=== PATIENT | female | born 1990 | race Caucasian/White ===

== ENCOUNTER → 2020-08-12 11:32 | Outpatient (CLI) | payer OTHER, MEDICAID, SELFPAY ==
[2020-08-12 14:12] LABS: Urine N gonorrhoeae NOT DETECTED
[2020-08-12 14:14] LABS: Urine Chlamydia NOT DETECTED
== END ==
PROVIDERS: Visit Provider Student in an Organized Health Care Education/Training Program
DX: N89.8 Other specified noninflammatory disorders of vagina (principal); R30.0 Dysuria
CPT/HCPCS: 87086; 87210; 87491; 87591

== ENCOUNTER → 2021-05-12 08:49 | Outpatient (CLI) | payer OTHER, MEDICAID, SELFPAY ==
[2021-05-12 09:12] LABS: COVID19 -Nasal RAPID POSITIVE (Negative)
== END ==
PROVIDERS: Referring Provider Nurse Practitioner Family; Visit Provider Nurse Practitioner Family
DX: Z20.822 Contact with and (suspected) exposure to COVID-19 (principal)
CPT/HCPCS: 87635

== ENCOUNTER 2021-08-14 17:47 | Observation (INO) | payer OTHER, MEDICAID, SELFPAY ==
[2021-08-14 17:51] VITALS: PULSE 90; RESP 24; TEMP 37.3; O2SAT 99
--- NOTE | 2021-08-14 17:53 | DI.RAD.S_ITS ---
PROCEDURE: XR RIBS RT MIN 3V W CXR 1V INDICATIONS: fall TECHNIQUE: 2 views of the right ribs were acquired, along with a single view chest. COMPARISON: None. FINDINGS: Surgical changes and devices: None. Bones and chest wall: Moderately displaced right lateral 7th and 8th rib fractures. No suspicious bony lesions. Overlying soft tissues appear unremarkable. Lungs and pleura: No pleural effusions . Small right pneumothorax. Lungs appear clear. Mediastinum: Mediastinal contours appear normal. Heart size is normal. IMPRESSION: 1. Right rib fractures. 2. Small right pneumothorax. 3. Findings discussed with Dr. Lantigua on 08/14/2021 at 18:10 hours. Dictated by: Rusty Cheek M.D. on 08/14/2021 at 18:08 Approved by: Rusty Cheek M.D. on 08/14/2021 at 18:10
[2021-08-14 17:54] VITALS: BP 142/70
--- NOTE | 2021-08-14 19:18 | ED.FALL ---
HPI - Fall General Chief Complaint: Fall Stated Complaint: fell going up step ribs hurt hard to breath Time Seen by Provider: 08/14/21 19:10 Source: patient Mode of arrival: Wheelchair History of Present Illness HPI Narrative: 31F smoker with noncontributory medical history presents with a chief complaint of right-sided chest pain after a fall last night. She states that she had had a few drinks and was walking up stairs and tripped and fell onto her right-sided ribs. She denies any head neck or back pain. She has pain with deep inspiration and feels short of breath as a consequence of this pain. She denies any cough or hemoptysis. She denies nausea, vomiting or diarrhea. She is otherwise healthy and free of complaint Related Data Home Medications Medication Instructions Recorded Confirmed albuterol sulfate 90 mcg/actuation 90 mcg INHALATION PRN PRN 08/12/20 08/14/21 aerosol inhaler valacyclovir 500 mg tablet 500 mg PO DAILY 08/14/21 08/14/21 Allergies Allergy/AdvReac Type Severity Reaction Status Date / Time naproxen Allergy Intermediate Hives Verified 05/12/21 08:48 Review of Systems Review of Systems Narrative: GENERAL: See HPI HEENT: Denies sinus pain, ear pain, sore throat, difficulty swallowing, dizziness. RESPIRATORY: See HPI CARDIOVASCULAR: Denies chest pain, palpitations, orthopnea, edema, GASTROINTESTINAL: Denies nausea, vomiting, abdominal pain, diarrhea, constipation, melena. : Denies dysuria, frequency, incontinence, hematuria, urinary retention. MUSCULOSKELETAL: denies weakness, joint pain, or bony pain SKIN: Denies rash, skin lesions, or other NEUROLOGIC: Denies weakness, headache, numbness, change in speech, confusion, seizures, incoordination. PSYCHIATRIC: No concerning psychosocial issues. 12 point review of systems is negative except for those stated above Patient History Medical History (Updated 08/14/21 @ 21:52 by KT Darnell) Closed rib fracture COVID-19 Encounter for screening for infections with predominantly sexual mode of transmission Pneumothorax on right Family History (Updated 08/14/21 @ 21:47 by KT Darnell) Mother Diabetes mellitus Father Diabetes mellitus Social History household members: none Smoking Status: Current every day smoker alcohol intake: current Smoking Status: Current every day smoker Exam Narrative Exam Narrative: GENERAL: [31] year old patient appears stated age. Well-developed patient, in mild distress. GCS 15, obviously uncomfortable, laying on her left side HEAD: Atraumatic. Normocephalic. EYES: Pupils equal round and reactive. Extraocular motions intact. No scleral icterus. No injection or drainage. ENT: Nose without bleeding, purulent drainage. Throat without erythema, tonsillar hypertrophy or exudate. Airway patent. NECK: Trachea midline. Non tender CARDIOVASCULAR: Regular rate and rhythm without murmurs, gallops, or rubs. RESPIRATORY: Decreased sounds right apex, tender to palpate lateral ribs, no crepitance or subcu emphysema, no swelling or erythema. GASTROINTESTINAL: Abdomen soft, non-tender, nondistended. EXTREMITIES: No edema or joint tenderness. BACK: Nontender without deformity or crepitance. No flank tenderness. NEURO: AOx3. SKIN: No rash or erythema of visible areas Initial Vital Signs Initial Vital Signs: Vital Signs Temperature 99.1 F 08/14/21 17:51 Pulse Rate 90 08/14/21 17:51 Respiratory Rate 24 08/14/21 17:51 Pulse Oximetry 99 08/14/21 17:51 Course Orders Ordered: ED Orders 08/14/21 17:53 XR ribs RT min 3V w CXR1V Stat 08/14/21 19:27 COVID19 -Nasal RAPID/Pre-Proc Stat 08/14/21 19:35 BMP [Basic Metabolic Panel] Stat CBC Auto Diff [Complete Blood Count AUTO DIFF] Stat Acetaminophen (Acetaminophen 325 Mg Tablet) 650 mg PO Q6H [facility] Last Admin: 08/14/21 23:33 Dose: Not Given Documented by: CMCFARL Enoxaparin Sodium (Enoxaparin 40 Mg/0.4 Ml Syringe) 40 mg SUBCUT DAILY [facility] Hydromorphone HCl (Hydromorphone 0.5 Mg Inj) 0.5 mg IV Q4H PRN PRN Reason: Breakthrough pain only (8-10) Naloxone HCl (Naloxone 0.4 Mg/Ml Vial) 0.2 mg IV Q2MIN PRN PRN Reason: Opiate Reversal Ondansetron HCl (Ondansetron 4 Mg Odt) 4 mg PO Q6HR PRN PRN Reason: Nausea And Vomiting Last Admin: 08/14/21 21:26 Dose: 4 mg Documented by: FELIX Oxycodone HCl (Oxycodone Ir 5 Mg Tablet) 5 mg PO Q4HR PRN PRN Reason: Pain, Severe (7-10) Last Admin: 08/14/21 21:26 Dose: 5 mg Documented by: DENISEFARBala Tramadol HCl (Tramadol 50 Mg Tablet) 50 mg PO Q4H PRN PRN Reason: Pain, Moderate (4-6) Stop: 08/17/21 20:22 Discontinued Medications Acetaminophen (Acetaminophen 325 Mg Tablet) 650 mg PO Q6HR PRN PRN Reason: Fever/Mild Pain (1-3) Last Admin: 08/14/21 22:11 Dose: 650 mg Documented by: DENISEFARBala Tramadol HCl (Tramadol 50 Mg Tablet) 100 mg PO Q4H PRN PRN Reason: Pain, Moderate (4-6) Stop: 08/17/21 20:22 Consultations Consultation #1: discussed with implementation specialist payroll surgery, clinical course and imaging reviewed. No need for intervention at this time, recommend OBS to medicine, pain control, O2 as needed, repeat Xray in the morning Consultation #2: hospitalist happy to accept Vital Signs Vital signs: Vital Signs - 8 hr 08/14/21 17:51 08/14/21 17:54 Temperature 99.1 F Pulse Rate 90 Respiratory Rate 24 Blood Pressure 142/70 H Pulse Oximetry 99 MDM - Fall Lab Data Result diagrams: 08/14/21 19:35 08/14/21 19:35 Labs: Lab Results 08/14/21 08/14/21 08/14/21 Range/Units 19:27 19:35 19:35 WBC 14.2 H (4.5-11.0) X10^3/uL RBC 4.49 (4.0-5.2) X10^6/uL Hgb 13.9 (12.0-16.0) g/dL Hct 41.8 (36-46) % MCV 93.1 (80-100) fL MCH 30.9 (26-34) PG MCHC 33.2 (30-36) % RDW 14.2 (11.6-14.8) % Plt Count 251 (150-400) X10^3/uL Neut % (Auto) 79.5 H (50-75) % Lymph % (Auto) 14.3 L (25-40) % [place] % (Auto) 5.9 (3-14) % Eos % (Auto) 0.2 L (2-4) % Baso % (Auto) 0.1 (0-2) % Neut # (Auto) 42571 H (7465-0652) /uL Lymph # (Auto) 2000 (6682-3952) /uL [place] # (Auto) 800 (0-900) /uL Eos # (Auto) 0 (0-450) /uL Baso # (Auto) 0 (0-100) /uL Sodium 142 (137-145) mmol/L Potassium 3.9 (3.4-5.1) mmol/L Chloride 106 (98-107) mmol/L Carbon Dioxide 30 (22-32) mmol/L BUN 11 (7-17) mg/dL Creatinine 0.66 (0.52-1.04) mg/dL Estimated GFR > 60 (>60) mL/min BUN/Creatinine Ratio 16.7 (6-22) Glucose 80 (70-100) mg/dL Calcium 9.6 (8.4-10.2) mg/dL SARS-CoV-2 (PCR) Negative (Negative) Imaging Data Chest x-ray: Radiologist's Impression: Chart Viewer Diagnostics Subcategory All Activity ??:?? All Time ??:?? All Subcategories Filter Laboratory Imaging Microbiology Pathology Blood Bank Tests Cardiovascular Other Specialty DATE TYPE STATUS REF RANGE/AUTHOR Hx Today 17:53 Ribs X-Ray Signed Rusty Cheek Amy D ED 31, F?1990 MRN#? [id number] REG ER,?Main ED??R04?? 54.431kg ? Fall Acc#? [id number] Resus Status Not Ordered No Hx Avail Special Indicators No Data to Display Home Meds Not Confirmed Prescription Monitoring Program MEDICATIONS (INSTRUCTIONS) LAST TAKEN Active ??albuterol sulfate 90 mcg/actuation aerosol inhaler ??INHALATION Allergies naproxen Hives Problems ? ONSET COVID-19 Shortness of breath Encounter for screening for infections with predominantly sexual mode of transmission Vital Signs Today 17:54 BP 142/70?H Diagnostics Reports Danna Don??31??F??1990 ? Allergy/Adv: naproxen Close Ribs X-Ray (Signed) Rusty Cheek - 08/14/21 [place] [address] XRay Report Signed Patient: Danna Don MR#: [id number] : 1990 Acct:[id number] Age/Sex: 31 / F Date of Service: 08/14/21 Loc: ED Accession Number: [id number] ?? Procedure: XR ribs RT min 3V w CXR1V Ordering Provider: Jak Lantigua D.O. PROCEDURE:? XR RIBS RT MIN 3V W CXR 1V ? INDICATIONS:? fall ? TECHNIQUE:? 2 views of the right ribs were acquired, along with a single view chest.? ? COMPARISON:? None. ? FINDINGS:? ? Surgical changes and devices:? None.? ? Bones and chest wall:? Moderately displaced right lateral 7th and 8th rib fractures.? No suspicious bony lesions.? Overlying soft tissues appear unremarkable.? ? Lungs and pleura:? No pleural effusions .? Small right pneumothorax.? Lungs appear clear. ? ? Mediastinum:? Mediastinal contours appear normal.? Heart size is normal.? ? IMPRESSION:? 1. Right rib fractures. 2. Small right pneumothorax. 3. Findings discussed with Dr. Lantigua on 08/14/2021 at 18:10 hours. ? ? Dictated by: Rusty Cheek M.D. on 08/14/2021 at 18:08 ? ? Approved by: Rusty Cheek M.D. on 08/14/2021 at 18:10 ? Discharge Plan Departure Patient Disposition: Admitted as Observation Clinical Impression: Pneumothorax on right, Closed rib fracture Admit Date/Time: 08/14/21 20:09 Admit Provider: Samantha Triana
[2021-08-14 19:51] LABS: Add Manual Diff / Slide Review NO; Basophils Absolute Auto 0 /uL (0-100); Basophils Percent Auto 0.1 % (0-2); Eosinophils Absolute Auto 0 /uL (0-450); Eosinophils Percent Auto 0.2 % (2-4); Hematocrit 41.8 % (36-46); Hemoglobin 13.9 g/dL (12.0-16.0); Lymphocytes Absolute Auto 2000 /uL (1100-4500); Lymphocytes Percent Auto 14.3 % (25-40); Mean Corpuscular HGB Conc 33.2 % (30-36); Mean Corpuscular Hemoglobin 30.9 PG (26-34); Mean Corpuscular Volume 93.1 fL (80-100); Monocytes Absolute Auto 800 /uL (0-900); Monocytes Percent Auto 5.9 % (3-14); Neutrophils Absolute Auto 11300 /uL (1500-7000); Neutrophils Percent Auto 79.5 % (50-75); Platelet Count 251 X10^3/uL (150-400); Red Blood Cell Count 4.49 X10^6/uL (4.0-5.2); Red Cell Distribution Width 14.2 % (11.6-14.8); White Blood Cell Count 14.2 X10^3/uL (4.5-11.0)
[2021-08-14 20:03] LABS: COVID19 -Nasal RAPID Negative (Negative)
[2021-08-14 20:04] LABS: BUN Creatinine Ratio 16.7 (6-22); Blood Urea Nitrogen 11 mg/dL (7-17); Calcium 9.6 mg/dL (8.4-10.2); Carbon Dioxide 30 mmol/L (22-32); Chloride 106 mmol/L (98-107); Estimated Glomerular Filt Rate > 60 mL/min (>60); Glucose 80 mg/dL (70-100); HEMOLYSIS < 15 (0-50); Potassium 3.9 mmol/L (3.4-5.1); Sodium 142 mmol/L (137-145)
[2021-08-14 21:10] VITALS: BP 131/75; PULSE 61; RESP 16; TEMP 36.6; O2SAT 98
[2021-08-14] MEDS: ONDANSETRON 4 MG ODT PO (21:26)
[2021-08-14] MEDS: OXYCODONE IR 5 MG TABLET PO (21:26)
[2021-08-14 21:37] VITALS: BMI 22.6
--- NOTE | 2021-08-14 21:45 | P.HP_ITS ---
History of Present Illness History of Present Illness Date Patient Seen: 08/14/21 Time Patient Seen: 21:45 Chief complaint: Fall yesterday, 2 rib fx, small r. pneumothorax Narrative: Danna Don is a 31 y.o. female with no current or chronic medical issues took a fall yesterday after binge drinking up her stairs. She states she got dizzy and tripped, but denied hitting her head. She developed right sided rib pain and presented to the ED. She has had nausea with the pain. Is painful with breathing and has not eaten or drank anything all day, states she is thirsty. Denies cough or shortness of breath, abdominal pain or diarrhea. Patient History Medical History (Updated 08/14/21 @ 21:52 by KT Darnell) Closed rib fracture COVID-19 Encounter for screening for infections with predominantly sexual mode of transmission Pneumothorax on right Family & Social History Family History (Updated 08/14/21 @ 21:47 by KT Darnell) Mother Diabetes mellitus Father Diabetes mellitus Tobacco & Substance use: Smoking Status: Current every day smoker, vapes Alcohol: Intermittent Substance: Marijuana Meds Home Medications and Allergies Home Medications Medication Instructions Recorded Confirmed Type albuterol sulfate 90 mcg/actuation 90 mcg INHALATION PRN PRN 08/12/20 08/14/21 History aerosol inhaler valacyclovir 500 mg tablet 500 mg PO DAILY 08/14/21 08/14/21 History Allergies Allergy/AdvReac Type Severity Reaction Status Date / Time naproxen Allergy Intermediate Hives Verified 05/12/21 08:48 Review of Systems Review of Systems ROS: Yes All systems reviewed with the patient and are negative except as otherwise documented Exam Vital Signs (past 8 hours): - 08/14/21 17:51 08/14/21 17:54 Temperature 99.1 F Pulse Rate 90 Respiratory Rate 24 Blood Pressure 142/70 H Pulse Oximetry 99 Oxygen Delivery Method Room Air Narrative Exam Narrative: Gen: Alert, oriented, well-developed 31 y.o. female, expressing a great deal of pain HEENT: normocephalic, atraumatic, conjunctiva clear, sclera non-icteric, oral mucosa pink and moist Neck: supple, full ROM, no JVD, trachea is midline Resp: Lungs CTA, shallow breathing CV: RRR, no murmur or rubs Abd: soft, non-tender, normoactive BTs Skin: no lesions or rashes, dry and intact Neuro: Alert and oriented X 4 w/no focal deficits. Speech clear and coherent. Extremities: moves all 4 extremities, is ambulatory, negative Chevy?s sign Psyche: normal mood and affect. Objective Labs Result Diagrams: 08/14/21 19:35 08/14/21 19:35 Labs: Laboratory Results - last 24 hr 08/14/21 08/14/21 08/14/21 19:27 19:35 19:35 WBC 14.2 H RBC 4.49 Hgb 13.9 Hct 41.8 MCV 93.1 MCH 30.9 MCHC 33.2 RDW 14.2 Plt Count 251 Neut % (Auto) 79.5 H Lymph % (Auto) 14.3 L [place] % (Auto) 5.9 Eos % (Auto) 0.2 L Baso % (Auto) 0.1 Neut # (Auto) 80416 H Lymph # (Auto) 2000 [place] # (Auto) 800 Eos # (Auto) 0 Baso # (Auto) 0 Sodium 142 Potassium 3.9 Chloride 106 Carbon Dioxide 30 BUN 11 Creatinine 0.66 Estimated GFR > 60 BUN/Creatinine Ratio 16.7 Glucose 80 Calcium 9.6 SARS-CoV-2 (PCR) Negative Assessment & Plan Assessment & Plan narrative: Danna Don will be observed overnight on the medical-surgical unit for both pain control and to monitor progression of her right sided pneumothrorax. 1. Fall with resultant small right sided pneumothorax * Continous O2 monitoring * Repeat chest xray in the am to monitor if has enlarged * I was informed Surgery was consulted and that the pneumothorax should resolve with oxygen, but to monitor overnight. 2. Displaced 7th and 8th rib fractures * Pain control with Tylenol, tramadol, oxycodone and IV dilaudid for breathrough pain 3. Tobacco dependence * Patient vapes tobacco and has been trying to reduce * She declines tobacco patch VTE Prophylaxis: Wells risk score 0 Enoxaparin 40 mg subQ once daily Bilateral SCDs Patient is placed into observation as her stay is not expected to exceed 2 midnights. FEN: IV fluids: saline lock, diet: general, labs: CBC, BMP Consultants Dr. Alanis, General Surgery, care and involvement in the patient?s care is appreciated. Dispo: Discharge to home in am anticipated Code status: Full Code as discussed with the patient who identifies her friend, Jojo (? needs to be entered into her chart) as her surrogate and POA. [X] I have utilized all available immediate resources to obtain, update, or review of the patient's current medications COVID-19 COVID-19 status: Negative Result date/Date tested (Pos, Neg/Pending): 08/14/21 Time Spent With Patient Critical Care time: I spent a total of [] minutes of critical care time on this patient's care today; this time is exclusive of procedural time. Scores Wells' Criteria for PE Clinical signs and symptoms of DVT: No PE is #1 Dx or equally likely: No Heart rate > 100: No Immobilization at least 3 days or surg in previous 4 weeks: No History of PE or DVT: No Hemoptysis: No Malignancy w/Treatment within 6 months or palliative: No Wells' PE Score total: 0 Quality VTE Deep Vein Thrombosis/Pulmonary Embolism Present on Admission: No MIPS - Admit I confirm the patient?s Advance Care Plan is present, Code status is documented, Surrogate decision maker is in patient?s record [If Yes, STOP here]: Yes MIPS - DC The patient has current or prior documentation of left ventricular ejection fraction (LVEF) less than 40%, or moderate or severely depressed left ventricular systolic function.: No
[2021-08-14] MEDS: ACETAMINOPHEN 325 MG TABLET 650 MG PO (22:11)
--- NOTE | 2021-08-14 22:42 | PC.NURSE ---
Pt to room 213 via w/c -able to transfer self to bathroom and then bed. Arranged pillows around Pt to increase comfort, warm blankets also applied. Pain meds given as well as water and juice to drink. Pt oriented to room, call light, bed controls, and tv controls. Bed alarm on for safety. Pt declines scd's and states she will perform ankle waves. Pt agrees to call for assistance as needed.
[2021-08-15] VITALS (8 sets, daily range): BP systolic 99–111; BP diastolic 51–68; PULSE 45–70; RESP 16–21; TEMP 35.9–36.5; O2SAT 94–99
[2021-08-15 05:23] LABS: Hematocrit 38.2 % (36-46)
[2021-08-15 05:34] LABS: Alanine Aminotransferase 21 IU/L (<35); Albumin 3.7 g/dL (3.5-5.0); Albumin Globulin Ratio 1.5 (1.0-2.8); Alkaline Phosphatase 46 U/L (38-126); Aspartate Aminotransferase 33 IU/L (14-36); BUN Creatinine Ratio 21.2 (6-22); Bilirubin Total 1.2 mg/dL (0.2-1.3); Blood Urea Nitrogen 14 mg/dL (7-17); Calcium 9.2 mg/dL (8.4-10.2); Carbon Dioxide 29 mmol/L (22-32); Chloride 104 mmol/L (98-107); Estimated Glomerular Filt Rate > 60 mL/min (>60); Globulin 2.4 g/dL (1.7-4.1); Glucose 92 mg/dL (70-100); HEMOLYSIS < 15 (0-50); Potassium 3.8 mmol/L (3.4-5.1); Sodium 136 mmol/L (137-145); Total Protein 6.1 g/dL (6.3-8.2)
[2021-08-15] MEDS: OXYCODONE IR 5 MG TABLET PO ×3 (07:45→23:49)
--- NOTE | 2021-08-15 08:10 | CM.DANOTE ---
DCP: Case received, EMR reviewed and met with patient. Introduced self and role. Was able to obtain some history from patient. DCP assessment completed with information currently available. Patient is a 31 year old female who admitted yesterday evening to the care of the hospitalist team. PCP: Dr. Maria A Morrow. Payer: [employer]. Patient came to the hospital via private vehicle secondary to a ground level fall that occurred at home. Patient was complaining of right-sided chest pain after sustaining a fall on the stairs. Patient had been binge drinking, was dizzy, and tripped on the steps. Patient ended up with right lateral 7th and 8th rib fractures. Met with patient in her room. She was laying in bed, alert and oriented. Confirmed that she resides alone here in [place]. Asked her about her drinking, if she thought she had drinking problems. She stated, no, I was just drunk, I don't drink all of the time. Asked her if she had a primary care provider, which she stated Maria A Morrow in [place]. Asked her also if she has someone to pick her up upon discharge, and she stated she does. P: DCP to continue to follow for any needs. Patient may be getting another x-ray this am. Plan is home when she is deemed medically stable. Guera Tinoco RN/Access Service Representative Discharge Planning/Care Management CM Discharge Assessment Start: 08/15/21 08:09 Freq: Status: Active Protocol: Document 08/15/21 08:09 (Rec: 08/15/21 08:09 [id number]) Discharge Planning Assessment Assigned [employer] Manager Guera Tinoco RN/Access Service Representative Advance Directives? No History Provided By Patient,Medical Record Prior Living Arrangements Apartment/Condo Household Members none Type of transporation used prior to Drives own vehicle admit Independent with ADL's Yes Is patient alert and oriented? Yes Caregiver for Another No Barriers to Discharge No Discharge Plan Home Transportation Arrangement Friend Referrals Initiated None needed Whiteboard Updated in Patient Room with Yes name and ext. # of [employer] Manager Review Status In Process Next Review Type Continued Stay Review
--- NOTE | 2021-08-15 09:00 | DI.RAD.S_ITS ---
PROCEDURE: XR CHEST 2V INDICATIONS: small right pneumothorax, 2 rib fractures, recheck pneumo TECHNIQUE: 2 views of the chest were acquired. COMPARISON: [facility], CR, XR RIBS RT MIN 3V W CXR 1V, 08/14/2021, 17:41. FINDINGS: Surgical changes and devices: None. Lungs and pleura: Patient's known right-sided pneumothorax appears to be unchanged in size compared to earlier study and measures 3.4 cm in craniocaudal dimension. Mediastinum: Mediastinal contours are normal. Heart size is normal. Bones and chest wall: Right-sided rib fractures are again seen also unchanged from prior study.. Soft tissues appear unremarkable. IMPRESSION: 2 right posterior lateral mid rib fractures with stable appearing small right-sided pneumothorax. Dictated by: Eduardo Orellana M.D. on 08/15/2021 at 9:39 Approved by: Eduardo Orellana M.D. on 08/15/2021 at 9:40
[2021-08-15] MEDS: ACETAMINOPHEN 325 MG TABLET 650 MG PO ×3 (09:45→23:50)
[2021-08-15] MEDS: TRAMADOL 50 MG TABLET PO (09:45)
--- NOTE | 2021-08-15 10:28 | P.CONS_ITS ---
History of Present Illness Consult details Date Patient Seen: 08/15/21 Time Patient Seen: 10:28 Chief complaint: Fall yesterday, 2 rib fx, small r. pneumothorax Narrative: 31 y.o woman admitted with a Right pneumothorax and rib fractures sp fall yesterday. No acute overnight events. Chest pain with deep inspiration. O2 sats 98% RA Small PNX on initial CXR unchanged after 12 hrs. Meds Home Medications and Allergies Home Medications Medication Instructions Recorded Confirmed Type albuterol sulfate 90 mcg/actuation 90 mcg INHALATION PRN PRN 08/12/20 08/14/21 History aerosol inhaler valacyclovir 500 mg tablet 500 mg PO DAILY 08/14/21 08/14/21 History Allergies Allergy/AdvReac Type Severity Reaction Status Date / Time naproxen Allergy Intermediate Hives Verified 05/12/21 08:48 Exam Vital Signs (past 8 hours): - 08/15/21 07:00 08/15/21 09:10 Temperature 97.5 F L Pulse Rate 45 L Respiratory Rate 18 Blood Pressure 111/51 L Pulse Oximetry 98 94 Oxygen Delivery Method Room Air Oxygen Flow Rate 0 Narrative Exam Narrative: Gen-Adult woman alert and oriented Chest-non labored resp Ext-WWP Objective Labs Result Diagrams: 08/15/21 04:57 08/15/21 04:57 Labs: Laboratory Results - last 24 hr 08/14/21 08/14/21 08/14/21 19:27 19:35 19:35 WBC 14.2 H RBC 4.49 Hgb 13.9 Hct 41.8 MCV 93.1 MCH 30.9 MCHC 33.2 RDW 14.2 Plt Count 251 Neut % (Auto) 79.5 H Lymph % (Auto) 14.3 L [place] % (Auto) 5.9 Eos % (Auto) 0.2 L Baso % (Auto) 0.1 Neut # (Auto) 63607 H Lymph # (Auto) 2000 [place] # (Auto) 800 Eos # (Auto) 0 Baso # (Auto) 0 Sodium 142 Potassium 3.9 Chloride 106 Carbon Dioxide 30 BUN 11 Creatinine 0.66 Estimated GFR > 60 BUN/Creatinine Ratio 16.7 Glucose 80 Calcium 9.6 Total Bilirubin AST ALT Alkaline Phosphatase Total Protein Albumin Globulin Albumin/Globulin Ratio SARS-CoV-2 (PCR) Negative 08/15/21 08/15/21 04:57 04:57 WBC RBC Hgb 13.0 Hct 38.2 MCV MCH MCHC RDW Plt Count Neut % (Auto) Lymph % (Auto) [place] % (Auto) Eos % (Auto) Baso % (Auto) Neut # (Auto) Lymph # (Auto) [place] # (Auto) Eos # (Auto) Baso # (Auto) Sodium 136 L Potassium 3.8 Chloride 104 Carbon Dioxide 29 BUN 14 Creatinine 0.66 Estimated GFR > 60 BUN/Creatinine Ratio 21.2 Glucose 92 Calcium 9.2 Total Bilirubin 1.2 AST 33 ALT 21 Alkaline Phosphatase 46 Total Protein 6.1 L Albumin 3.7 Globulin 2.4 Albumin/Globulin Ratio 1.5 SARS-CoV-2 (PCR) [facility] Medical History Closed rib fracture COVID-19 Encounter for screening for infections with predominantly sexual mode of transmission Pneumothorax on right Family History Mother Diabetes mellitus Father Diabetes mellitus Social History household members: none Tobacco & Substance Use Smoking Status: Current every day smoker alcohol intake: current Assessment & Plan Assessment and plan (1) Pneumothorax on right: Status: Acute Assessment & Plan narrative: 31 y.o woman with a right pneumothorax and rib fxs. Repeat CXR after 12 hr reviewed small pneumothorax unchanged over interval without intervention. May discharge with return precautions for worsening shortness of breath. Multimodal pain control for rib fractures Time Spent With Patient Critical Care time: I spent a total of [] minutes of critical care time on this patient's care today; this time is exclusive of procedural time.
[2021-08-15] MEDS: CYCLOBENZAPRINE 10 MG TABLET 5 MG PO ×2 (12:57→20:41)
[2021-08-15] MEDS: LIDOCAINE PATCH 1 EACH ADH..PATCH TOP (12:57)
--- NOTE | 2021-08-15 16:08 | PM.PN.1 ---
Subjective Subjective Date Patient Seen: 08/15/21 Time Patient Seen: 08:00 Interval history: She denies shortness of breath. She has pain with breathing. She says she is in too much pain to sit up. Exam Vital Signs (past 8 hours): - 08/15/21 09:10 08/15/21 11:00 08/15/21 15:00 Temperature 97.7 F 97.4 F L Pulse Rate 47 L 56 L Respiratory Rate 18 19 Blood Pressure 99/61 110/63 Pulse Oximetry 94 98 99 Oxygen Delivery Method Room Air Oxygen Flow Rate 0 Narrative Exam Narrative: Gen-no acute distress PULM-clear bilaterally Objective Labs Result Diagrams: 08/15/21 04:57 08/15/21 04:57 Labs: Laboratory Results - last 24 hr 08/14/21 08/14/21 08/14/21 19:27 19:35 19:35 WBC 14.2 H RBC 4.49 Hgb 13.9 Hct 41.8 MCV 93.1 MCH 30.9 MCHC 33.2 RDW 14.2 Plt Count 251 Neut % (Auto) 79.5 H Lymph % (Auto) 14.3 L Bullock % (Auto) 5.9 Eos % (Auto) 0.2 L Baso % (Auto) 0.1 Neut # (Auto) 18119 H Lymph # (Auto) 2000 Bullock # (Auto) 800 Eos # (Auto) 0 Baso # (Auto) 0 Sodium 142 Potassium 3.9 Chloride 106 Carbon Dioxide 30 BUN 11 Creatinine 0.66 Estimated GFR > 60 BUN/Creatinine Ratio 16.7 Glucose 80 Calcium 9.6 Total Bilirubin AST ALT Alkaline Phosphatase Total Protein Albumin Globulin Albumin/Globulin Ratio SARS-CoV-2 (PCR) Negative 08/15/21 08/15/21 04:57 04:57 WBC RBC Hgb 13.0 Hct 38.2 MCV MCH MCHC RDW Plt Count Neut % (Auto) Lymph % (Auto) Bullock % (Auto) Eos % (Auto) Baso % (Auto) Neut # (Auto) Lymph # (Auto) Bullock # (Auto) Eos # (Auto) Baso # (Auto) Sodium 136 L Potassium 3.8 Chloride 104 Carbon Dioxide 29 BUN 14 Creatinine 0.66 Estimated GFR > 60 BUN/Creatinine Ratio 21.2 Glucose 92 Calcium 9.2 Total Bilirubin 1.2 AST 33 ALT 21 Alkaline Phosphatase 46 Total Protein 6.1 L Albumin 3.7 Globulin 2.4 Albumin/Globulin Ratio 1.5 SARS-CoV-2 (PCR) [facility] Medical History Closed rib fracture COVID-19 Encounter for screening for infections with predominantly sexual mode of transmission Pneumothorax on right Family History Mother Diabetes mellitus Father Diabetes mellitus Social History household members: none Smoking Status: Current every day smoker alcohol intake: current Assessment & Plan Assessment & Plan narrative: 1. Fall with resultant small right sided pneumothorax -repeat xray showed no change -appreciate surgery eval 2. Displaced 7th and 8th rib fractures -Pain control with Tylenol, tramadol, oxycodone and IV dilaudid for breathrough pain -add lidocaine patch, flexeril 3. Tobacco dependence -Patient vapes tobacco and has been trying to reduce - declines tobacco patch 4. Alcohol use -she denies consistent drinking, but fell due to intoxication -suspect unlikely to withdraw, but monitor ciwa for now Time Spent With Patient Critical Care time: I spent a total of [] minutes of critical care time on this patient's care today; this time is exclusive of procedural time. Quality VTE Deep Vein Thrombosis/Pulmonary Embolism Present on Admission: No
[2021-08-15] MEDS: ONDANSETRON 4 MG ODT PO (23:49)
[2021-08-16] VITALS (9 sets, daily range): BP systolic 95–110; BP diastolic 53–71; PULSE 54–69; RESP 14–20; TEMP 36.1–36.8; O2SAT 95–98
[2021-08-16] MEDS: TRAMADOL 50 MG TABLET PO (03:02)
[2021-08-16] MEDS: CYCLOBENZAPRINE 10 MG TABLET 5 MG PO ×2 (03:03→19:36)
[2021-08-16] MEDS: THIAMINE 100 MG TABLET PO (08:19)
[2021-08-16] MEDS: MULTIVITAMIN 1 TABLET 1 TAB PO (08:19)
[2021-08-16] MEDS: ENOXAPARIN 40 MG/0.4 ML SYRINGE SUBCUT (08:20)
[2021-08-16] MEDS: FOLIC ACID 1 MG TABLET PO (08:20)
[2021-08-16] MEDS: OXYCODONE IR 5 MG TABLET PO (08:20)
[2021-08-16] MEDS: LIDOCAINE PATCH 1 EACH ADH..PATCH TOP (08:21)
[2021-08-16] MEDS: OXYCODONE IR 10 MG TABLET PO ×3 (11:44→22:10)
[2021-08-16] MEDS: ACETAMINOPHEN 325 MG TABLET 650 MG PO ×3 (11:47→22:11)
--- NOTE | 2021-08-16 12:17 | PC.NURSE ---
Pt is A&O x3 with right sided rib fracture, has been complaining of severe pain (11/23). Gave 5 mg oxy at 0820, Dr. Mckenzie increased order to 10 mg. 10 mg oxy administered around 1200. There is some swelling to the right side, lidocaine patch is applied. Pt is resting in bed now.
--- NOTE | 2021-08-16 16:03 | P.PN_ITS ---
Subjective Subjective Date Patient Seen: 08/16/21 Time Patient Seen: 16:04 Interval history: Pain is still not controlled, oral medication works but she feels as if it is not strong enough and she still has a difficult time moving and taking a deep breath in. She is able to sit up today but she did appear to be in quite a bit of pain afterwards. Exam Vital Signs (past 8 hours): - 08/16/21 09:42 08/16/21 11:00 08/16/21 15:00 Temperature 98.2 F 97.3 F L Pulse Rate 61 56 L 56 L Respiratory Rate 18 17 18 Blood Pressure 97/63 103/61 Pulse Oximetry 96 96 97 Oxygen Delivery Method Room Air Oxygen Flow Rate 0 Narrative Exam Narrative: General:? Patient is well developed and well nourished, in no distress at this time. Chest:? Normal AP diameter and contour without kyphoscoliosis, no tachypnea, equal chest rise bilaterally. Lungs:? CTA b/l no wheezing rhonchi or rales. Cardio:?RRR no m/r/g. Psych:? Patient has a well-kept appearance, appropriate affect, mental status attitude thought context and judgment are appropriate for age. Objective Labs Result Diagrams: 08/15/21 04:57 08/15/21 04:57 [facility] Medical History Closed rib fracture COVID-19 Encounter for screening for infections with predominantly sexual mode of transmission Pneumothorax on right Family History Mother Diabetes mellitus Father Diabetes mellitus Social History household members: none Smoking Status: Current every day smoker alcohol intake: current Assessment & Plan Assessment & Plan narrative: 1. Fall with resultant small right sided pneumothorax -repeat xray showed no change -appreciate surgery eval -no chest tube necessary. 2. Displaced 7th and 8th rib fractures -Pain control with Tylenol, tramadol, oxycodone and IV dilaudid for breathrough pain. Increased oral oxycodone today to see if there is any improvement in pain control in the hope of having her be able to go home. -added lidocaine patch, flexeril yesterday 3. Tobacco dependence -Patient vapes tobacco and has been trying to reduce - declines tobacco patch 4. Alcohol use -she denies consistent drinking, but fell due to intoxication -suspect unlikely to withdraw, but monitor ciwa until time of discharge Dispo: continue to work on pain control, anticipate discharge home tomorrow based on progress today. Time Spent With Patient Critical Care time: I spent a total of [] minutes of critical care time on this patient's care today; this time is exclusive of procedural time. Quality VTE Deep Vein Thrombosis/Pulmonary Embolism Present on Admission: No
--- NOTE | 2021-08-16 17:56 | PC.NURSE ---
Patients oxycodone was increased to 10mg po and this has helped her with r.rib discomfort. She is up to the bathroom with sba, or independent and moving well. Lidocaine patch placed to r.abdomen and she states this is also helpful to her. To give more pain medication at this time. Patient tolerating her meals and no nausea.
[2021-08-16] MEDS: SODIUM CHLORIDE 0.9% FLUSH 10 ML IV (22:11)
[2021-08-17] MEDS: OXYCODONE IR 10 MG TABLET PO ×2 (02:43→08:47)
[2021-08-17 02:47] VITALS: O2SAT 97
[2021-08-17] MEDS: MULTIVITAMIN 1 TABLET 1 TAB PO (08:47)
[2021-08-17] MEDS: THIAMINE 100 MG TABLET PO (08:47)
[2021-08-17] MEDS: SODIUM CHLORIDE 0.9% FLUSH 10 ML IV (08:48)
[2021-08-17] MEDS: LIDOCAINE PATCH 1 EACH ADH..PATCH TOP (08:48)
[2021-08-17] MEDS: ACETAMINOPHEN 325 MG TABLET 650 MG PO (08:48)
[2021-08-17] MEDS: FOLIC ACID 1 MG TABLET PO (08:48)
--- NOTE | 2021-08-17 09:22 | P.DS_ITS ---
History of Present Illness History of Present Illness Date Patient Seen: 08/17/21 Time Patient Seen: 09:22 Chief complaint: Fall yesterday, 2 rib fx, small r. pneumothorax Narrative: Per KT Darnell: Danna Don is a 31 y.o. female with no current or chronic medical issues took a fall yesterday after binge drinking up her stairs. She states she got dizzy and tripped, but denied hitting her head. She developed right sided rib pain and presented to the ED. She has had nausea with the pain. Is painful with breathing and has not eaten or drank anything all day, states she is thirsty. Denies cough or shortness of breath, abdominal pain or diarrhea. Discharge Providers Provider Date of admission: 08/14/21 20:09 Discharge Date: 08/17/21 Consults: 08/14/21 20:27 Consult to Physician Routine Comment: Consulting Provider: Nito Alanis Reason for consultation: right sided pneumothorax Has provider been notified: Yes 08/14/21 21:46 Consult to Respiratory Therapy Evaluate & Treat Comment: Physician Instructions: Evaluate and treat Discharge provider: Drake Mckenzie DO Summary Hospital Course Discharge Diagnosis: 1. Fall with resultant small right sided pneumothorax 2. Displaced 7th and 8th rib fractures 3. Tobacco dependence 4. Alcohol use Hospital Course: This is a 31 year old female, active smoker, who was admitted after a fall where she suffered displaced 7th and 8th rib fractures with resultant small right vaibhav ed pneumothorax. Repeat imaging showed a stable process and surgery did not recommend any interventions. She continued to have difficulty with pain control, but after a few days she was able to mobilize a bit better and take deep breath with oral pain medications only. She was advised on limiting alcohol intake and tobacco cessation. Exam Vital Signs (past 8 hours): - 08/17/21 02:47 Pulse Oximetry 97 Oxygen Delivery Method Room Air Oxygen Flow Rate 0 Narrative Exam Narrative: General:? Patient is well developed and well nourished, in no distress at this time. Chest:? Normal AP diameter and contour without kyphoscoliosis, no tachypnea, equal chest rise bilaterally. Lungs:? CTA b/l no wheezing rhonchi or rales. Cardio:?RRR no m/r/g. Psych:? Patient has a well-kept appearance, appropriate affect, mental status attitude thought context and judgment are appropriate for age. Objective Labs Result Diagrams: 08/15/21 04:57 08/15/21 04:57 PFSH Medical History Closed rib fracture COVID-19 Encounter for screening for infections with predominantly sexual mode of transmission Pneumothorax on right Family History Mother Diabetes mellitus Father Diabetes mellitus Social History household members: none Smoking Status: Current every day smoker alcohol intake: current Discharge Plan Discharge Plan Patient Disposition: Home Provider Discharge Comment: You were admitted to the hospital after a fall and r ib fractures for pain control. This improved over a couple of days. Please continue tylenol and motrin every 8 hours at home, alternating doses over the course of 1 week. This is designed to reduce opiate use at home. Please continue to use incentive spirometer at home as well. Please follow up with primary care in the next few weeks if continuing to have significant pain. Discharge orders & Medications Prescriptions: New cyclobenzaprine 10 mg Tablet 5 mg PO Q8HR PRN (Reason: spasm) 7 Days Qty: 20 0RF acetaminophen 325 mg Tablet 650 mg PO Q6H 30 Days Qty: 240 0RF oxycodone 5 mg tablet 5 - 10 mg PO Q6H PRN (Reason: pain) 7 Days Qty: 40 0RF Continued albuterol sulfate 90 mcg/actuation HFA aerosol inhaler 90 mcg inhalation PRN PRN (Reason: Shortness Of Breath) 0RF valacyclovir 500 mg tablet 500 mg PO DAILY 0RF Label Comments: take 1 tablet by mouth daily Follow up/Referrals: Miscellaneous,Doctor, [Non-Staff] - Diet/Activity/Treatments Diet: Diet as Tolerated Activity: As tolerated Discharge Data Attending Provider: Samantha Triana VTE Deep Vein Thrombosis/Pulmonary Embolism Present on Admission: No
[2021-08-17 09:25] VITALS: BP 126/71; PULSE 70; RESP 16; TEMP 36.6; O2SAT 99
--- NOTE | 2021-08-17 11:41 | PC.NURSE ---
Pt discharged at 11:30, escorted off floor in wheelchair, accompanied by sister and hospital staff. IV removed, discharge teaching complete including new medications, worsening symptoms and follow up appointments. Questions and concerns answered. Pt left floor with all belongings.
--- NOTE | 2021-08-17 15:17 | CM.DPC ---
DCP Discharge Home Per MD, pt is medically stable to d/c home today with no identified barriers to discharge. Per RN, no concerns and pt given d/c instructions and sister arrived to provide transport home today via POV. Plan: Patient to d/c home today via sister POV and no further SW needs at this time. MOLLY Andino
== END 2021-08-17 11:45 | disposition home or self-care (01) ==
LOC: ED 19:35 → AC 20:10 → ICU 20:56 → AC 21:05
PROVIDERS: Admitting Provider Nurse Practitioner Family; Emergency Provider Emergency Medicine; Referring Provider Emergency Medicine; Visit Provider Nurse Practitioner Family
DX: J93.9 Pneumothorax, unspecified (principal); S22.41XA Multiple fractures of ribs, right side, initial encounter for closed fracture; W10.9XXA Fall (on) (from) unspecified stairs and steps, initial encounter; Y92.009 Unspecified place in unspecified non-institutional (private) residence as the place of occurrence of the external cause; F17.210 Nicotine dependence, cigarettes, uncomplicated; Z20.822 Contact with and (suspected) exposure to COVID-19
CPT/HCPCS: 36415; 71046; 71101; 80048; 80053; 85014; 85018; 85025; 87635; 94762; 99225; 99283; C9803; G0378; J1650

== ENCOUNTER 2021-12-14 11:56 | Emergency (ER) | payer OTHER, MEDICAID, SELFPAY ==
[2021-12-14 12:36] VITALS: BP 150/88; PULSE 93; RESP 16; TEMP 37; O2SAT 100; BMI 23.6
--- NOTE | 2021-12-14 12:42 | DI.RAD.S_ITS ---
PROCEDURE: XR RIBS RT MIN 3V W CXR 1V INDICATIONS: right rib pain TECHNIQUE: 2 views of the right ribs were acquired, along with a single view chest. COMPARISON: [facility], CR, XR RIBS RT MIN 3V W CXR 1V, 08/14/2021, 17:41. FINDINGS: Surgical changes and devices: None. Bones and chest wall: Old healed right 6th and 7th rib fractures noted. No evidence of acute fracture or lytic lesion Lungs and pleura: No pleural effusions or pneumothorax. Lungs appear clear. Mediastinum: Mediastinal contours appear normal. Heart size is normal. IMPRESSION: Old healed right-sided rib fractures. No acute fracture or pneumothorax. Approved by: Colin Martell M.D. on 12/14/2021 at 12:23
--- NOTE | 2021-12-14 13:18 | ED.CHESTPAIN ---
HPI - Chest Pain <KT Ricks - Last Filed: 12/14/21 13:38> General Chief Complaint: Chest Pain Stated Complaint: Pain on ribs under rt arm Time Seen by Provider: 12/14/21 12:56 Source: patient Mode of arrival: Ambulatory History of Present Illness HPI narrative: This is a 31-year-old female with history of traumatic injury on 08/14/2021 and states that she fractured her right ribs 2 through 4 although on chart review it appears that patient had moderately displaced right lateral 7th and 8th rib fractures. She did not have any pleural effusion but did have a small right pneumothorax. She was admitted for observation and was discharged home on 08/17/2021. Patient presents to the emergency department today for worsening pain and she is complaining of pain in her right upper ribs, she is wearing a binder around her chest and states that it helps. She denies any recent trauma or injury, states that she was taking Flexeril ibuprofen and Tylenol and it was not helping. Related Data Home Medications Medication Instructions Recorded Confirmed albuterol sulfate 90 mcg/actuation 90 mcg inhalation PRN PRN 08/12/20 08/14/21 aerosol inhaler Shortness Of Breath valacyclovir 500 mg tablet 500 mg PO DAILY 08/14/21 08/14/21 Previous Rx's Medication Instructions Recorded hydroxyzine HCl 25 mg tablet 25 mg PO BID PRN worsening pain 12/14/21 #14 tabs ketorolac 10 mg tablet 10 mg PO TID PRN pain 5 days #14 12/14/21 tabs lidocaine 5 % topical patch 1 patch topical DAILY #15 ea 12/14/21 (Lidoderm) methocarbamol 500 mg tablet 500 mg PO BEDTIME PRN pain #10 tabs 12/14/21 Allergies Allergy/AdvReac Type Severity Reaction Status Date / Time naproxen Allergy Intermediate Hives Verified 05/12/21 08:48 Review of Systems <KT Ricks - Last Filed: 12/14/21 13:38> Review of Systems Narrative: Review of systems is negative for acute abnormalities unless otherwise noted in HPI Patient History <KT Ricks - Last Filed: 12/14/21 13:38> Medical History Closed rib fracture COVID-19 Encounter for screening for infections with predominantly sexual mode of transmission Pneumothorax on right Family History Mother Diabetes mellitus Father Diabetes mellitus Social History household members: none Smoking Status: Current every day smoker alcohol intake: current Smoking Status: Current every day smoker tobacco type: vaping alcohol intake frequency: 0-2 drinks per day Substance Use Type: marijuana Exam <KT Ricks - Last Filed: 12/14/21 13:38> Narrative Exam Narrative: Reviewed vitals signs and nursing notes. General: cooperative, uncomfortable, in no acute distress, well groomed HEENT: symmetrical facial expressions, moist mucous membranes Cardiovascular: regular rate and rhythm, no peripheral edema, warm extremities Respiratory: normal effort, able to speak in complete sentences, without wheezing, stridor, or abnormal breath sounds. No retractions or tachypnea. No crepitus, equal chest rise and fall Skin: brisk capillary refill, without pallor or erythema Neuro: normal speech and cognition, A&O x3, ambulatory, clear speech Psych: mental status is grossly normal, congruent mood, flat affect, cooperative Initial Vital Signs Initial Vital Signs: Vital Signs Temperature 98.6 F 12/14/21 12:36 Pulse Rate 93 H 12/14/21 12:36 Respiratory Rate 16 12/14/21 12:36 Blood Pressure 150/88 H 12/14/21 12:36 Pulse Oximetry 100 12/14/21 12:36 Oxygen Delivery Method 12/14/21 12:36 <Syeda Francisco DO - Last Filed: 12/15/21 11:15> Initial Vital Signs Initial Vital Signs: Vital Signs Temperature 98.6 F 12/14/21 12:36 Pulse Rate 93 H 12/14/21 12:36 Respiratory Rate 16 12/14/21 12:36 Blood Pressure 150/88 H 12/14/21 12:36 Pulse Oximetry 100 12/14/21 12:36 Oxygen Delivery Method 12/14/21 12:36 Course <KT Ricks - Last Filed: 12/14/21 13:38> Orders Ordered: Discontinued Medications Hydroxyzine Pamoate (Hydroxyzine Pamoate 25 Mg Capsule) 25 mg PO NOW ONE Stop: 12/14/21 13:17 Last Admin: 12/14/21 13:49 Dose: 25 mg Documented By: FRANCESCAK Ketorolac Tromethamine (Ketorolac 30 Mg/Ml Vial) 15 mg IM NOW ONE Stop: 12/14/21 13:17 Last Admin: 12/14/21 13:49 Dose: 15 mg Documented By: FRANCESCAK Lidocaine (Lidocaine Patch 1 Each Adh..Patch) 1 each TOP NOW ONE Stop: 12/14/21 13:17 Last Admin: 12/14/21 13:49 Dose: 1 each Documented By: FRANCESCAK Vital Signs Vital signs: Vital Signs - 8 hr 12/14/21 12:36 Temperature 98.6 F Pulse Rate 93 H Respiratory Rate 16 Blood Pressure 150/88 H Pulse Oximetry 100 Oxygen Delivery Method Room Air <Syeda Francisco DO - Last Filed: 12/15/21 11:15> Orders Ordered: Discontinued Medications Hydroxyzine Pamoate (Hydroxyzine Pamoate 25 Mg Capsule) 25 mg PO NOW ONE Stop: 12/14/21 13:17 Last Admin: 12/14/21 13:49 Dose: 25 mg Documented By: TODD Ketorolac Tromethamine (Ketorolac 30 Mg/Ml Vial) 15 mg IM NOW ONE Stop: 12/14/21 13:17 Last Admin: 12/14/21 13:49 Dose: 15 mg Documented By: TODD Lidocaine (Lidocaine Patch 1 Each Adh..Patch) 1 each TOP NOW ONE Stop: 12/14/21 13:17 Last Admin: 12/14/21 13:49 Dose: 1 each Documented By: FRANCESCAK Vital Signs Vital signs: Vital Signs - 8 hr 12/14/21 12:36 Temperature 98.6 F Pulse Rate 93 H Respiratory Rate 16 Blood Pressure 150/88 H Pulse Oximetry 100 Oxygen Delivery Method Room Air MDM - Chest Pain <KT Ricks - Last Filed: 12/14/21 13:38> Imaging Data Chest x-ray: Radiologist's Impression: PROCEDURE:? XR RIBS RT MIN 3V W CXR 1V ? INDICATIONS:? right rib pain ? TECHNIQUE:? 2 views of the right ribs were acquired, along with a single view chest.? ? COMPARISON:? [facility], CR, XR RIBS RT MIN 3V W CXR 1V, 08/14/2021, 17:41. ? FINDINGS:? ? Surgical changes and devices:? None.? ? Bones and chest wall:? Old healed right 6th and 7th rib fractures noted.? No evidence of acute fracture or lytic lesion ? Lungs and pleura:? No pleural effusions or pneumothorax.? Lungs appear clear.? ? Mediastinum:? Mediastinal contours appear normal.? Heart size is normal.? ? IMPRESSION:? ? Old healed right-sided rib fractures.? No acute fracture or pneumothorax. ? ? ? Approved by: Colin Martell M.D. on 12/14/2021 at 12:23? [facility] Narrative Medical decision making narrative: This is a 31-year-old female who presents to the emergency department with right sided rib pain stating that she fractured her ribs on the right 2. Through 4 and states that she is having worsening pain due to this. Her right rib x-ray today shows that her previous fractures of ribs 6 and 7 have healed, there is no pneumothorax or pleural effusion, there is no acute fracture or new changes. Patient denies any shortness of breath, wheezing. She is seeking pain control, she has a primary care provider, her name is Maria A Morrow. She had previously prescribed for her a muscle relaxer and encouraged to use Tylenol and ibuprofen. Patient comes in today and states that it does not help. She denies any recent trauma. She was given Toradol and a lidocaine patch, gave her hydroxyzine as I think there is some component of anxiety. Encouraged her to follow-up with her primary care provider for outpatient physical therapy or chronic pain management means. Discussed with her that due to the length of time since her previous right rib fractures happened this is not acute pain any longer, this is most likely costochondritis related to recent muscle/cartilage strain. Patient had tenderness to the anterior upper chest over her musculature and was reproducible. Patient is appropriate and amenable to discharge home. Vital signs are stable on repeat examination is unremarkable. Patient has been informed of results. Patient has been given strict return to ER precautions for any new or worsening symptoms. Patient understands to follow up closely with outpatient providers as instructed. Patient understands plan and agrees to discharge home. All questions and concerns answered at this time. Discharge Plan Departure Patient Disposition: Home Clinical Impression: Rib pain on right side Instructions: Costochondritis Activity Restrictions/Additional Instructions: *You have been diagnosed with rib pain which does not appear to be dangerous. Your previous 6th and 7th ribs have healed and there is no suspicious findings on your chest x-ray today. Please follow-up with Maria A Morrow regarding your pain, you may benefit from physical therapy. Try to avoid over exertion, this is most likely muscle or cartilage which should improve over the next 1 to 2 weeks. Please call the number listed below if you would like to make an appointment with 1 of the primary care providers here, they are booking pretty far out. I hope that you feel better soon, please do not where the binder for long periods of time it can cause atrophy of the muscles and could increase the potential that you would muscle or cartilage pain in your chest again. *What to do: *Please continue to take your regular medications as directed. [x ] New medication prescriptions sent to your pharmacy: [[facility] ] [ ] New medication written as a paper prescription [ ] No new medications given *Please follow up with your primary care provider in 2-3 days, call for an appointment. Let them know you were seen in the Emergency Department and that we asked that you be seen for follow-up. We will electronically transmit a record of today's note if your PCP is in our system *If you do not have a primary care provider please contact [phone] to establish care with one of the [facility] primary care providers. *Return to Emergency Department if you should have any new, worsening, or concerning symptoms, such as [fever greater than 101F, chills, worsening pain, persistent vomiting or other bothersome symptoms]. Prescriptions: New hydroxyzine HCl 25 mg tablet 25 mg PO BID PRN (Reason: worsening pain) Qty: 14 0RF methocarbamol 500 mg tablet 500 mg PO BEDTIME PRN (Reason: pain) Qty: 10 0RF lidocaine [Lidoderm] 5 % adhesive patch,medicated 1 patch topical DAILY Qty: 15 0RF Rx Instructions: leave on most painful area for up to 12 hrs ketorolac 10 mg tablet 10 mg PO TID PRN (Reason: pain) 5 Days Qty: 14 0RF Rx Instructions: Take instead of ibuprofen if you do not have any allergy. No Action albuterol sulfate 90 mcg/actuation HFA aerosol inhaler 90 mcg inhalation PRN PRN (Reason: Shortness Of Breath) valacyclovir 500 mg tablet 500 mg PO DAILY Label Comments: take 1 tablet by mouth daily Referrals: Maria A Morrow ARNP [Non-Staff] - Visit Report Forms: Patient Portal/API <Syeda Francisco DO - Last Filed: 12/15/21 11:15> Cosign ED Attending Sophiaature Attestation: I was immediately available in the department for consultation. Documentation has been reviewed. I agree with assessment and plan.
[2021-12-14] MEDS: LIDOCAINE PATCH 1 EACH ADH..PATCH TOP (13:49)
[2021-12-14] MEDS: hydrOXYzine pamoate 25 MG CAPSULE PO (13:49)
[2021-12-14] MEDS: KETOROLAC 30 MG/ML VIAL 15 MG IM (13:49)
== END 2021-12-14 14:00 | disposition home or self-care (01) ==
PROVIDERS: Emergency Provider Nurse Practitioner Critical Care Medicine
DX: R07.81 Pleurodynia (principal)
CPT/HCPCS: 71101; 96372; 99283; 99284; J1885

== ENCOUNTER → 2022-03-04 12:19 | Outpatient (CLI) | payer OTHER, MEDICAID, SELFPAY | PROVIDERS: Visit Provider Registered Nurse | DX: N39.0 Urinary tract infection, site not specified (principal) | CPT/HCPCS: 81002; 87077; 87086 ==

== ENCOUNTER 2022-03-09 02:31 | Emergency (ER) | payer OTHER, MEDICAID, SELFPAY ==
[2022-03-09] VITALS (7 sets, daily range): BP systolic 128–140; BP diastolic 80–91; PULSE 66–97; RESP 14–21; TEMP 36.6; O2SAT 98–100; BMI 20.7
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
[2022-03-09 02:52] LABS: Add Manual Diff / Slide Review NO; Basophils Absolute Auto 100 /uL (0-100); Basophils Percent Auto 1.2 % (0-2); Eosinophils Absolute Auto 100 /uL (0-450); Eosinophils Percent Auto 1.5 % (2-4); Hematocrit 43.8 % (36-46); Hemoglobin 14.6 g/dL (12.0-16.0); Lymphocytes Absolute Auto 3600 /uL (1100-4500); Mean Corpuscular HGB Conc 33.4 % (30-36); Mean Corpuscular Hemoglobin 31.2 PG (26-34); Mean Corpuscular Volume 93.6 fL (80-100); Monocytes Absolute Auto 600 /uL (0-900); Monocytes Percent Auto 7.4 % (3-14); Neutrophils Absolute Auto 3900 /uL (1500-7000); Neutrophils Percent Auto 46.9 % (50-75); Platelet Count 338 X10^3/uL (150-400); Red Blood Cell Count 4.67 X10^6/uL (4.0-5.2); Red Cell Distribution Width 13.7 % (11.6-14.8); White Blood Cell Count 8.4 X10^3/uL (4.5-11.0)
[2022-03-09 03:00] LABS: Acetaminophen < 10 ug/mL (10-30); Alanine Aminotransferase 62 IU/L (<35); Albumin 4.7 g/dL (3.5-5.0); Albumin Globulin Ratio 1.4 (1.0-2.8); Alkaline Phosphatase 104 U/L (38-126); Aspartate Aminotransferase 83 IU/L (14-36); BUN Creatinine Ratio 9.9 (6-22); Bilirubin Total 0.7 mg/dL (0.2-1.3); Bilirubin Unconjugated 0.6 mg/dL (0.0-1.1); Blood Urea Nitrogen 7 mg/dL (7-17); Calcium 10.6 mg/dL (8.4-10.2); Carbon Dioxide 21 mmol/L (22-32); Chloride 105 mmol/L (98-107); Estimated Glomerular Filt Rate > 60 mL/min (>60); Globulin 3.4 g/dL (1.7-4.1); Glucose 124 mg/dL (70-100); HEMOLYSIS < 15 (0-50); Lactate (Lactic Acid) 2.4 mmol/L (0.7-2.1); Potassium 3.5 mmol/L (3.4-5.1); Salicylate < 1.0 mg/dL (<20); Sodium 143 mmol/L (137-145); Total Protein 8.1 g/dL (6.3-8.2)
[2022-03-09 03:07] LABS: Ethanol (ETOH) 385 mg/dL
[2022-03-09] MEDS: SODIUM CHLORIDE 0.9% 1,000 ML 1000 ML IV (03:10)
[2022-03-09 03:13] LABS: Pregnancy Test Serum,Qual Negative (Negative)
--- NOTE | 2022-03-09 03:48 | PC.NURSE ---
STRAW BALER note: when patient was brought back, her male comfort person was next to her. He was trying to keep her calm, while telling staff that she had been drinking earlier in the evening. He stayed with her for a few minutes and she would yell/raise her voice at him, with repetitive statements. He went to go get something out of his car, he came back with multiple (3+) phones. While he stepped out of the room to get his phones, patient was able to sleep. Phones' ringers were up very loud, which would wake up the patient. Multiple times we could hear loud talking coming from the room with his voice lower, valenzuela, and a not nice tone. She would react with a high pitch, crying whine, and apologizing. When Rose JOHNSON went into the room to try to de-escalate the patient said no no no, it's not his fault. Then any time we came into the room after that she would whine no no no, he's okay. But multiple times he raised his voice at her. They got into arguments, her yelling that she wanted her brother, and he was a manager information. He was also on his multiple phones, which would cause her distress. Her whines would ramp up whenever his phones would ring. When Rose JOHNSON tried to get her male comfort friend to step out (he was taking a phone call and he stepped into the hallway), he initially refused. He is outside
[2022-03-09] MEDS: ONDANSETRON 4 MG/2 ML INJ IV (03:52)
--- NOTE | 2022-03-09 04:22 | PC.NURSE ---
Her SO Javi was asked to leave the room after he was asked not to disturb her or wake her up as she wa calm and appeared to be sleeping.He,however,awakened her and had multiple cell phones ringing and there was a loud disturbance between her and him.It was a lot of verbal swearing and loud talking between her and javi.I then,after asking javi multiple times to control the noise,asked Javi to leave the E.D. to make his phone calls and I told him I would get him after things calmed down,I was unable to locate him in ED waiting room approx. a half hour after.
[2022-03-09 04:46] LABS: Reflexed Lactate in 2 Hours Y
--- NOTE | 2022-03-09 04:59 | PC.NURSE ---
She was adamant that she would remove her IV catheter herself if it was not taken out,I removed the catheter patent and intact and placed a dry dressing over the site.She had been crying and yelling to remove it for about 45 minutes now.
== END 2022-03-09 05:46 | disposition home or self-care (01) ==
PROVIDERS: Emergency Provider Emergency Medicine
DX: F10.129 Alcohol abuse with intoxication, unspecified (principal); Y90.8 Blood alcohol level of 240 mg/100 ml or more
CPT/HCPCS: 36415; 80053; 80076; 80320; 80329; 83605; 84703; 85025; 96361; 96374; 99284; G0480; J2405

== ENCOUNTER 2022-08-24 18:46 | Emergency (ER) | payer OTHER, MEDICAID, SELFPAY ==
[2022-08-24 18:52] VITALS: BP 127/78; PULSE 88; RESP 18; TEMP 37.2; O2SAT 98; BMI 22.6
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
--- NOTE | 2022-08-25 10:08 | PC.NURSE ---
Late Entry- reviewing radiology for patient left without being seen- + results seen. Charge Nurse Deb Hicks called patients number to give her this information- did not answer and voicemail mailbox was full and unable to leave a message. Deb sent patient a letter to her home address.
== END 2022-08-24 20:42 | disposition left against medical advice (07) ==
PROVIDERS: Emergency Provider Emergency Medicine
DX: S22.31XA Fracture of one rib, right side, initial encounter for closed fracture (principal); Y04.2XXA Assault by strike against or bumped into by another person, initial encounter
CPT/HCPCS: 71101; 99283

== ENCOUNTER 2023-02-21 14:27 | Emergency (ER) | payer OTHER, MEDICAID, SELFPAY ==
[2023-02-21 14:32] VITALS: BP 132/83; PULSE 78; RESP 16; TEMP 36.1; O2SAT 100; BMI 22.6
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
[2023-02-21 16:36] VITALS: BP 132/78; PULSE 80; RESP 16; O2SAT 100
== END 2023-02-21 16:36 | disposition home or self-care (01) ==
PROVIDERS: Emergency Provider Emergency Medicine
DX: R07.89 Other chest pain (principal)
CPT/HCPCS: 71046; 99281; 99283

== ENCOUNTER 2024-07-21 15:23 | Emergency (ER) | payer OTHER, SELFPAY ==
[2024-07-21 15:36] VITALS: BP 144/96; PULSE 88; RESP 18; TEMP 36.2; O2SAT 100; BMI 22.6
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
--- NOTE | 2024-07-21 15:47 | DI.RAD.S_ITS ---
PROCEDURE: XR SHOULDER RT MIN 2V INDICATIONS: pain TECHNIQUE: 3 views of the shoulder were acquired. COMPARISON: None. FINDINGS: Bones: No fractures or dislocations. No suspicious bony lesions. Visualized ribs appear intact. Soft tissues: No suspicious soft tissue calcifications. IMPRESSION: No acute right shoulder fracture or dislocation. No gross soft tissue abnormalities. Dictated by: Eduardo Orellana M.D. on 07/21/2024 at 16:24 Approved by: Eduardo Orellana M.D. on 07/21/2024 at 16:27
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
[2024-07-21 18:11] LABS: RBC Urine 1-5/HPF (0-5/HPF); Urine Volume 10mL (spun); WBC Urine 30-100/HPF (0-5/HPF)
[2024-07-21 18:12] LABS: Bacteria Urine Many (>30); Culture Indicated Urine Specimen Cultured; Squamous Epithelial Cell Urine 1-5 /HPF (0-5/HPF)
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
[2024-07-21 18:56] LABS: Urine N gonorrhoeae NOT DETECTED
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
[2024-07-21 19:09] LABS: Urine Chlamydia NOT DETECTED
[2024-07-21] MEDS: ONDANSETRON 4 MG ODT SL (19:38)
[2024-07-21] MEDS: ACETAMINOPHEN 325 MG TABLET 650 MG PO (19:39)
[2024-07-21 19:54] VITALS: BP 119/65; PULSE 83; RESP 16; TEMP 37.2; O2SAT 99
== END 2024-07-21 19:56 | disposition home or self-care (01) ==
PROVIDERS: Emergency Medicine; Emergency Provider Family Medicine
DX: Z02.89 Encounter for other administrative examinations (principal); S02.2XXA Fracture of nasal bones, initial encounter for closed fracture; S09.90XA Unspecified injury of head, initial encounter; M25.511 Pain in right shoulder; N39.0 Urinary tract infection, site not specified; B96.20 Unspecified Escherichia coli [E. coli] as the cause of diseases classified elsewhere; V18.0XXA Pedal cycle driver injured in noncollision transport accident in nontraffic accident, initial encounter; Y93.55 Activity, bike riding
CPT/HCPCS: 70450; 70486; 71110; 73030; 81003; 81015; 81025; 87077; 87086; 87186; 87491; 87591; 99283; 99284

== ENCOUNTER 2024-07-24 13:05 | Emergency (ER) | payer OTHER, SELFPAY ==
[2024-07-24] VITALS (22 sets, daily range): BP systolic 100–125; BP diastolic 55–74; PULSE 84–112; RESP 13–21; O2SAT 92–100; BMI 23.6
[2024-07-24 13:28] LABS: Add Manual Diff / Slide Review NO; Basophils Absolute Auto 0 /uL (0-100); Basophils Percent Auto 0.3 % (0-2); Eosinophils Absolute Auto 0 /uL (0-450); Eosinophils Percent Auto 0.3 % (2-4); Hematocrit 39.9 % (36-46); Hemoglobin 13.5 g/dL (12.0-16.0); Lymphocytes Absolute Auto 1100 /uL (1100-4500); Lymphocytes Percent Auto 7.5 % (25-40); Mean Corpuscular HGB Conc 33.8 % (30-36); Mean Corpuscular Hemoglobin 30.2 PG (26-34); Mean Corpuscular Volume 89.4 fL (80-100); Monocytes Absolute Auto 1200 /uL (0-900); Monocytes Percent Auto 8.6 % (3-14); Neutrophils Absolute Auto 12000 /uL (1500-7000); Neutrophils Percent Auto 83.3 % (50-75); Platelet Count 276 X10^3/uL (150-400); Red Blood Cell Count 4.47 X10^6/uL (4.0-5.2); Red Cell Distribution Width 12.7 % (11.6-14.8); White Blood Cell Count 14.5 X10^3/uL (4.5-11.0)
[2024-07-24 13:45] LABS: Alanine Aminotransferase 26 IU/L (<35); Albumin 4.3 g/dL (3.5-5.0); Albumin Globulin Ratio 1.4 (1.0-2.8); Alkaline Phosphatase 90 U/L (38-126); Aspartate Aminotransferase 33 IU/L (14-36); BUN Creatinine Ratio 12.3 (6-22); Bilirubin Total 0.6 mg/dL (0.2-1.3); Blood Urea Nitrogen 10 mg/dL (7-17); Calcium 10.8 mg/dL (8.4-10.2); Carbon Dioxide 18 mmol/L (22-32); Chloride 104 mmol/L (98-107); Estimated Glomerular Filt Rate > 60 mL/min (>60); Globulin 3.1 g/dL (1.7-4.1); Glucose 110 mg/dL (70-100); HEMOLYSIS 19 (0-50); Lipase 122 U/L (23-300); Sodium 135 mmol/L (137-145); Total Protein 7.4 g/dL (6.3-8.2)
[2024-07-24 14:53] LABS: Amorphous Sediment Urine 1+; Bacteria Urine Many (>30); Culture Indicated Urine Specimen Cultured; RBC Urine 5-10/HPF (0-5/HPF); Squamous Epithelial Cell Urine 1-5 /HPF (0-5/HPF); Urine Volume 10mL (spun); WBC Urine 10-30/HPF (0-5/HPF)
--- NOTE | 2024-07-24 15:14 | ED_ITS ---
HPI - Abdominal Pain <Maico Leigh MD - Last Filed: 07/24/24 18:50> General Chief Complaint: Abdominal Pain Stated Complaint: RLQ abd Time Seen by Provider: 07/24/24 13:09 Source: patient and EMS Mode of arrival: EMS History of Present Illness HPI narrative: 34-year-old female complains of one-week duration of urgency to urinate, increasing right-sided abdominal pain, no prior abdominopelvic surgeries. Does not recall prior urinary tract infection. She does not recall prior pelvic infections, or infections with chlamydia or gonorrhea. No diarrhea. No nausea or vomiting. Denies trouble breathing, chest pain. No black or red stools. No loose stools. Related Data Previous Rx's Medication Instructions Recorded cephalexin 500 mg capsule 500 mg PO QID 7 days #28 caps 07/23/24 ondansetron 4 mg disintegrating 4 mg PO Q8H PRN nausea and 07/24/24 tablet vomiting 5 days #15 tabs oxycodone-acetaminophen 5 mg-325 1 tab PO Q8H PRN pain 3 days #9 07/24/24 mg tablet (Percocet) tabs sulfamethoxazole 800 2 tab PO BID 14 days #56 tabs 07/24/24 mg-trimethoprim 160 mg tablet (Bactrim DS) Allergies Allergy/AdvReac Type Severity Reaction Status Date / Time naproxen Allergy Intermediate Hives Verified 10/01/23 18:34 Patient History <Maico Leigh MD - Last Filed: 07/24/24 18:50> Medical History Closed rib fracture Pneumothorax on right COVID-19 Encounter for screening for infections with predominantly sexual mode of transmission Family History Mother Diabetes mellitus Father Diabetes mellitus Social History household members: none alcohol intake: current tobacco type: vaping alcohol intake frequency: 3 or more drinks per day Alcohol type: hard liquor Exam <Maico Leigh MD - Last Filed: 07/24/24 18:50> Narrative Exam Narrative: GENERAL: Well-developed patient, in mild distress. HEAD: Atraumatic. Normocephalic. EYES: Pupils equal round and reactive. Extraocular motions intact. No scleral icterus. No injection or drainage. ENT: Nose without bleeding, purulent drainage. Throat without erythema, tonsillar hypertrophy or exudate. Airway patent. NECK: Trachea midline. Non tender CARDIOVASCULAR: Regular rate and rhythm without murmurs, gallops, or rubs. RESPIRATORY: Clear to auscultation. Breath sounds equal bilaterally. No wheezes, rales, or rhonchi. GASTROINTESTINAL: Abdomen nondistended, has right lower quadrant tenderness, some voluntary guarding, hypoactive bowel tones. EXTREMITIES: No edema or joint tenderness. BACK: Nontender without deformity or crepitance. No flank tenderness. NEURO: AOx3. Motor functions grossly nonfocal SKIN: No rash or erythema of visible areas Initial Vital Signs Initial Vital Signs: Vital Signs Pulse Rate 112 H 07/24/24 13:11 Respiratory Rate 20 07/24/24 13:11 Blood Pressure 123/72 07/24/24 13:11 Pulse Oximetry 97 07/24/24 13:11 <Drake Keen DO - Last Filed: 07/24/24 21:33> Initial Vital Signs Initial Vital Signs: Vital Signs Pulse Rate 112 H 07/24/24 13:11 Respiratory Rate 20 07/24/24 13:11 Blood Pressure 123/72 07/24/24 13:11 Pulse Oximetry 97 07/24/24 13:11 Course <Maico Leigh MD - Last Filed: 07/24/24 18:50> Orders Ordered: ED Orders 07/24/24 13:17 Complete Blood Count AUTO DIFF Stat Comprehensive Metabolic Panel Stat Lipase Stat 07/24/24 13:24 Consult to [facility] - Export Clerk Stat 07/24/24 14:21 Chlamydia Gonorrhea PCR -URINE Stat Urine Culture Stat Urine Microscopic Stat 07/24/24 15:23 CT abdomen pelvis wo con Stat 07/24/24 18:42 CT abdomen pelvis w con Stat Discontinued Medications Celecoxib (Celecoxib 200 Mg Capsule) 200 mg PO NOW ONE Stop: 07/24/24 19:34 Ceftriaxone Sodium 1,000 mg/ (Sodium Chloride) 100 mls @ 200 mls/hr IV NOW ONE Stop: 07/24/24 15:26 Last Infusion: 07/24/24 16:27 Dose: Infused Documented By: Admin: 07/24/24 15:49 Dose: 200 mls/hr Documented By: ANASTACIO Acetaminophen (Ofirmev) 1,000 mg in 100 mls @ 400 mls/hr IV NOW ONE Stop: 07/24/24 19:09 Last Infusion: 07/24/24 19:44 Dose: Infused Documented By: Admin: 07/24/24 19:19 Dose: 400 mls/hr Documented By: ARELI Methocarbamol (Methocarbamol 500 Mg Tablet) 500 mg PO NOW ONE Stop: 07/24/24 18:56 Last Admin: 07/24/24 19:20 Dose: 500 mg Documented By: AERLI Morphine Sulfate (Morphine 4 Mg/Ml Inj) 4 mg IV NOW ONE Stop: 07/24/24 18:40 Last Admin: 07/24/24 19:19 Dose: 4 mg Documented By: ARELI Vital Signs Vital signs: Vital Signs - 8 hr 07/24/24 13:30 07/24/24 13:30 07/24/24 14:00 Pulse Rate 102 H 99 H Respiratory Rate Blood Pressure 120/69 Pulse Oximetry 98 100 Oxygen Delivery Method Room Air 07/24/24 14:00 07/24/24 14:21 07/24/24 14:21 Pulse Rate 99 H Respiratory Rate 21 Blood Pressure 122/73 119/70 Pulse Oximetry 100 Oxygen Delivery Method 07/24/24 14:30 07/24/24 14:30 07/24/24 15:00 Pulse Rate 95 H Respiratory Rate 14 Blood Pressure 118/69 122/69 Pulse Oximetry 100 Oxygen Delivery Method 07/24/24 15:00 07/24/24 15:37 07/24/24 15:37 Pulse Rate 99 H 100 H Respiratory Rate 15 21 Blood Pressure 110/64 Pulse Oximetry 100 100 Oxygen Delivery Method Room Air 07/24/24 16:00 07/24/24 16:00 07/24/24 16:30 Pulse Rate 94 H Respiratory Rate 17 Blood Pressure 115/65 123/74 Pulse Oximetry 99 Oxygen Delivery Method 07/24/24 16:30 07/24/24 17:00 07/24/24 17:00 Pulse Rate 98 H 94 H Respiratory Rate 14 16 Blood Pressure 125/69 Pulse Oximetry 100 100 Oxygen Delivery Method Room Air 07/24/24 17:30 07/24/24 17:30 07/24/24 18:00 Pulse Rate 97 H 102 H Respiratory Rate 16 20 Blood Pressure 125/69 Pulse Oximetry 100 100 Oxygen Delivery Method 07/24/24 18:00 07/24/24 18:30 07/24/24 18:30 Pulse Rate 100 H Respiratory Rate 20 Blood Pressure 111/59 L 117/65 Pulse Oximetry 100 Oxygen Delivery Method 07/24/24 19:00 07/24/24 19:00 07/24/24 19:30 Pulse Rate 99 H Respiratory Rate 19 Blood Pressure 117/72 121/65 Pulse Oximetry 100 Oxygen Delivery Method 07/24/24 19:30 07/24/24 20:00 07/24/24 20:00 Pulse Rate 99 H 90 Respiratory Rate 16 20 Blood Pressure 119/56 L Pulse Oximetry 99 98 Oxygen Delivery Method 07/24/24 20:33 07/24/24 20:35 07/24/24 20:35 Pulse Rate 93 H 92 H Respiratory Rate 20 13 Blood Pressure 109/56 L Pulse Oximetry 92 98 Oxygen Delivery Method Room Air <Drake Keen DO - Last Filed: 07/24/24 21:33> Orders Ordered: ED Orders 07/24/24 13:17 Complete Blood Count AUTO DIFF Stat Comprehensive Metabolic Panel Stat Lipase Stat 07/24/24 13:24 Consult to [employer] - Export Clerk Stat 07/24/24 14:21 Chlamydia Gonorrhea PCR -URINE Stat Urine Culture Stat Urine Microscopic Stat 07/24/24 15:23 CT abdomen pelvis wo con Stat 07/24/24 18:42 CT abdomen pelvis w con Stat Discontinued Medications Celecoxib (Celecoxib 200 Mg Capsule) 200 mg PO NOW ONE Stop: 07/24/24 19:34 Ceftriaxone Sodium 1,000 mg/ (Sodium Chloride) 100 mls @ 200 mls/hr IV NOW ONE Stop: 07/24/24 15:26 Last Infusion: 07/24/24 16:27 Dose: Infused Documented By: Admin: 07/24/24 15:49 Dose: 200 mls/hr Documented By: ANASTACIO Acetaminophen (Ofirmev) 1,000 mg in 100 mls @ 400 mls/hr IV NOW ONE Stop: 07/24/24 19:09 Last Infusion: 07/24/24 19:44 Dose: Infused Documented By: Admin: 07/24/24 19:19 Dose: 400 mls/hr Documented By: ARELI Methocarbamol (Methocarbamol 500 Mg Tablet) 500 mg PO NOW ONE Stop: 07/24/24 18:56 Last Admin: 07/24/24 19:20 Dose: 500 mg Documented By: ARELI Morphine Sulfate (Morphine 4 Mg/Ml Inj) 4 mg IV NOW ONE Stop: 07/24/24 18:40 Last Admin: 07/24/24 19:19 Dose: 4 mg Documented By: ARELI Vital Signs Vital signs: Vital Signs - 8 hr 07/24/24 13:30 07/24/24 13:30 07/24/24 14:00 Pulse Rate 102 H 99 H Respiratory Rate Blood Pressure 120/69 Pulse Oximetry 98 100 Oxygen Delivery Method Room Air 07/24/24 14:00 07/24/24 14:21 07/24/24 14:21 Pulse Rate 99 H Respiratory Rate 21 Blood Pressure 122/73 119/70 Pulse Oximetry 100 Oxygen Delivery Method 07/24/24 14:30 07/24/24 14:30 07/24/24 15:00 Pulse Rate 95 H Respiratory Rate 14 Blood Pressure 118/69 122/69 Pulse Oximetry 100 Oxygen Delivery Method 07/24/24 15:00 07/24/24 15:37 07/24/24 15:37 Pulse Rate 99 H 100 H Respiratory Rate 15 21 Blood Pressure 110/64 Pulse Oximetry 100 100 Oxygen Delivery Method Room Air 07/24/24 16:00 07/24/24 16:00 07/24/24 16:30 Pulse Rate 94 H Respiratory Rate 17 Blood Pressure 115/65 123/74 Pulse Oximetry 99 Oxygen Delivery Method 07/24/24 16:30 07/24/24 17:00 07/24/24 17:00 Pulse Rate 98 H 94 H Respiratory Rate 14 16 Blood Pressure 125/69 Pulse Oximetry 100 100 Oxygen Delivery Method Room Air 07/24/24 17:30 07/24/24 17:30 07/24/24 18:00 Pulse Rate 97 H 102 H Respiratory Rate 16 20 Blood Pressure 125/69 Pulse Oximetry 100 100 Oxygen Delivery Method 07/24/24 18:00 07/24/24 18:30 07/24/24 18:30 Pulse Rate 100 H Respiratory Rate 20 Blood Pressure 111/59 L 117/65 Pulse Oximetry 100 Oxygen Delivery Method 07/24/24 19:00 07/24/24 19:00 07/24/24 19:30 Pulse Rate 99 H Respiratory Rate 19 Blood Pressure 117/72 121/65 Pulse Oximetry 100 Oxygen Delivery Method 07/24/24 19:30 07/24/24 20:00 07/24/24 20:00 Pulse Rate 99 H 90 Respiratory Rate 16 20 Blood Pressure 119/56 L Pulse Oximetry 99 98 Oxygen Delivery Method 07/24/24 20:33 07/24/24 20:35 07/24/24 20:35 Pulse Rate 93 H 92 H Respiratory Rate 20 13 Blood Pressure 109/56 L Pulse Oximetry 92 98 Oxygen Delivery Method Room Air MDM - Abdominal Pain <Maico Leigh MD - Last Filed: 07/24/24 18:50> Lab Data Lab results narrative: White blood cell count 74186, hemoglobin 13.5, platelets adequate. Glucose 110. BUN 10 with creatinine 0.81. Serum carbon dioxide 18. Sodium 135, potassium 4.0, serum chloride 104, serum carbon dioxide 18. Urinalysis shows few epithelial cells but the presence of many bacteria and some inflammatory cells, urine culture requested by protocol. Urine hCG negative. 07/24/24 13:17 07/24/24 13:17 Labs: Lab Results 07/24/24 07/24/24 Range/Units 13:17 14:21 WBC 14.5 H (4.5-11.0) X10^3/uL RBC 4.47 (4.0-5.2) X10^6/uL Hgb 13.5 (12.0-16.0) g/dL Hct 39.9 (36-46) % MCV 89.4 (80-100) fL MCH 30.2 (26-34) PG MCHC 33.8 (30-36) % RDW 12.7 (11.6-14.8) % Plt Count 276 (150-400) X10^3/uL Neut % (Auto) 83.3 H (50-75) % Lymph % (Auto) 7.5 L (25-40) % [place] % (Auto) 8.6 (3-14) % Eos % (Auto) 0.3 L (2-4) % Baso % (Auto) 0.3 (0-2) % Neut # (Auto) 54076 H (5327-0178) /uL Lymph # (Auto) 1100 (8639-5089) /uL [place] # (Auto) 1200 H (0-900) /uL Eos # (Auto) 0 (0-450) /uL Baso # (Auto) 0 (0-100) /uL Sodium 135 L (137-145) mmol/L Potassium 4.0 (3.4-5.1) mmol/L Chloride 104 (98-107) mmol/L Carbon Dioxide 18 L (22-32) mmol/L BUN 10 (7-17) mg/dL Creatinine 0.81 (0.52-1.04) mg/dL Estimated GFR > 60 (>60) mL/min BUN/Creatinine Ratio 12.3 (6-22) Glucose 110 H (70-100) mg/dL Calcium 10.8 H (8.4-10.2) mg/dL Total Bilirubin 0.6 (0.2-1.3) mg/dL AST 33 (14-36) IU/L ALT 26 (<35) IU/L Alkaline Phosphatase 90 (38-126) U/L Total Protein 7.4 (6.3-8.2) g/dL Albumin 4.3 (3.5-5.0) g/dL Globulin 3.1 (1.7-4.1) g/dL Albumin/Globulin Ratio 1.4 (1.0-2.8) Lipase 122 (23-300) U/L Urine RBC 5-10/hpf H (0-5/HPF) Urine WBC 10-30/hpf H (0-5/HPF) Ur Squamous Epith Cells 1-5 /hpf (0-5/HPF) Amorphous Sediment 1+ Urine Bacteria Many (>30) H (None) Ur Culture Indicated? Specimen cultured Vol Urine Centrifuged 10ml (spun) Ur Chlamydia DNA (PCR) Not detected N gonorrhoeae DNA (PCR) Not detected Point of care testing: Point of Care Testing Test Results Negative Urine Dip Bedside Urine Glucose Negative Bedside Urine Bilirubin - Negative Bedside Urine Ketone - Negative Urine Specific [place] 1.025 Bedside Urine Occult Blood +++ Bedside Urine pH 6.0 Bedside Urine Protein + 30 Bedside Urine Urobilinogen - Negative Bedside Urine Nitrite + Positive Bedside Urine Leukocytes ++ 125 Esterase MDM Narrative Medical decision making narrative: Right lower quadrant abdominal discomfort on examination, hCG negative, urinalysis suspicious for UTI, IV ceftriaxone given. However patient does seem to have significant tenderness to right lower quadrant. We will additionally imaged with CT abdomen and pelvis, patient gave verbal consent. CT abdomen and pelvis scan ordered. 1800, CT abdomen and pelvis results show equivocal changes, concern for epiploic appendagitis versus bowel loop versus ruptured appendicitis. Oncoming ED shift physician Dr Keen to contact surgery, and will assumed care for disposition at this time. <Drake Keen, DO - Last Filed: 07/24/24 21:33> Lab Data Labs: Lab Results 07/24/24 07/24/24 Range/Units 13:17 14:21 WBC 14.5 H (4.5-11.0) X10^3/uL RBC 4.47 (4.0-5.2) X10^6/uL Hgb 13.5 (12.0-16.0) g/dL Hct 39.9 (36-46) % MCV 89.4 (80-100) fL MCH 30.2 (26-34) PG MCHC 33.8 (30-36) % RDW 12.7 (11.6-14.8) % Plt Count 276 (150-400) X10^3/uL Neut % (Auto) 83.3 H (50-75) % Lymph % (Auto) 7.5 L (25-40) % [place] % (Auto) 8.6 (3-14) % Eos % (Auto) 0.3 L (2-4) % Baso % (Auto) 0.3 (0-2) % Neut # (Auto) 39734 H (4950-7408) /uL Lymph # (Auto) 1100 (4750-6513) /uL [place] # (Auto) 1200 H (0-900) /uL Eos # (Auto) 0 (0-450) /uL Baso # (Auto) 0 (0-100) /uL Sodium 135 L (137-145) mmol/L Potassium 4.0 (3.4-5.1) mmol/L Chloride 104 (98-107) mmol/L Carbon Dioxide 18 L (22-32) mmol/L BUN 10 (7-17) mg/dL Creatinine 0.81 (0.52-1.04) mg/dL Estimated GFR > 60 (>60) mL/min BUN/Creatinine Ratio 12.3 (6-22) Glucose 110 H (70-100) mg/dL Calcium 10.8 H (8.4-10.2) mg/dL Total Bilirubin 0.6 (0.2-1.3) mg/dL AST 33 (14-36) IU/L ALT 26 (<35) IU/L Alkaline Phosphatase 90 (38-126) U/L Total Protein 7.4 (6.3-8.2) g/dL Albumin 4.3 (3.5-5.0) g/dL Globulin 3.1 (1.7-4.1) g/dL Albumin/Globulin Ratio 1.4 (1.0-2.8) Lipase 122 (23-300) U/L Urine RBC 5-10/hpf H (0-5/HPF) Urine WBC 10-30/hpf H (0-5/HPF) Ur Squamous Epith Cells 1-5 /hpf (0-5/HPF) Amorphous Sediment 1+ Urine Bacteria Many (>30) H (None) Ur Culture Indicated? Specimen cultured Vol Urine Centrifuged 10ml (spun) Ur Chlamydia DNA (PCR) Not detected N gonorrhoeae DNA (PCR) Not detected Point of care testing: Point of Care Testing Test Results Negative Urine Dip Bedside Urine Glucose Negative Bedside Urine Bilirubin - Negative Bedside Urine Ketone - Negative Urine Specific [place] 1.025 Bedside Urine Occult Blood +++ Bedside Urine pH 6.0 Bedside Urine Protein + 30 Bedside Urine Urobilinogen - Negative Bedside Urine Nitrite + Positive Bedside Urine Leukocytes ++ [address] scan - abdomen/pelvis: Radiologist's Impression: [place] [address] CT Scan Report Signed Patient: Danna Don MR#: [id number] : 1990 Acct:[id number] Age/Sex: 34 / F Date of Service: 07/24/24 Loc: ED Accession Number: [id number] Procedure: CT abdomen pelvis wo con Ordering Provider: Maico Leigh MD PROCEDURE: CT ABDOMEN PELVIS WO CON INDICATIONS: RLQ pain, tender TECHNIQUE: Axial sections were acquired from the lung bases to the pubic symphysis. Coronal and sagittal reformats were performed. For radiation dose reduction, the following was used: automated exposure control, adjustment of mA and/or kV according to patient size. COMPARISON: None. FINDINGS: Image quality: Diagnostic. Lower Chest: No significant findings. URINARY: Right Kidney: No stones or hydronephrosis. Right Ureter: No hydroureter. Left Kidney: No stones or hydronephrosis. Left Ureter: No hydroureter. Bladder: Normal wall thickness. No stones. ABDOMEN: Liver: No contour-deforming solid mass. Gallbladder: No radiopaque gallstones or wall thickening. Biliary ducts: No biliary dilation. Pancreas: No ductal dilation. Spleen: Size is within normal limits. Adrenal Glands: No adrenal nodules. Stomach and Bowel: Normal colonic caliber, without significant wall thickening. There is inflammatory change in the fat subjacent to the ascending colon. An appendix is not identified. Inflammatory changes at a distance from the expected location of the appendix. The inflammatory changes present in close proximity to the upper pole of the right kidney and posterior to the ascending colon and subjacent to the inferior tip liver. Peritoneum: No abnormal intraperitoneal fluid. No free air. Ventral Wall: No hernia. Abdominal Nodes: No enlarged retroperitoneal or mesenteric lymph nodes. Vessels: Aorta and inferior vena cava are normal in size. PELVIS: Pelvic Organs: Unremarkable. Pelvic Nodes: Unremarkable. Miscellaneous: No inguinal hernias are seen. Bones: Unremarkable. IMPRESSION: 1. No renal stone, ureteral stone, or hydronephrosis. 2. The appendix is not visualized. 3. There is inflammatory change in the fat in the right abdomen subjacent to the kidney, colon, and tip of the liver. Consider epiploic appendagitis versus right colonic diverticulitis versus findings related to ruptured appendicitis. There is no associated free air or abscess cavity. Repeat CT abdomen and pelvis with p.o. and IV contrast: Radiologist's Impression: [place] [address] CT Scan Report Signed Patient: Danna Don MR#: [id number] : 1990 Acct:[id number] Age/Sex: 34 / F Date of Service: 07/24/24 Loc: ED Accession Number: [id number] Procedure: CT abdomen pelvis w con Ordering Provider: Drake Keen D.O. PROCEDURE: CT ABDOMEN PELVIS W CON INDICATIONS: indeterminate CT of RLQ TECHNIQUE: After the administration of intravenous contrast, axial sections acquired from the lung bases to the pubic symphysis. Coronal and sagittal reformats were performed. For radiation dose reduction, the following was used: automated exposure control, adjustment of mA and/or kV according to patient size. COMPARISON: [facility], CT, CT ABDOMEN PELVIS WO CON, 07/24/2024, 15:32. FINDINGS: Image quality: Diagnostic. Lower Chest: No significant findings. ABDOMEN: Liver: No solid mass. Gallbladder: No radiopaque gallstones or wall thickening. Biliary ducts: No biliary dilation. Pancreas: No ductal dilation. Spleen: Size is within normal limits. Adrenal Glands: No adrenal nodules. Kidneys and Ureters: There is decreased contrast enhancement in the superior medial the right kidney. Previous area inflammation within the fat of the right abdomen adjacent to the inferior renal pole as well as right colon and tip of the liver is present, unchanged. Stomach and Bowel: Normal colonic caliber, without significant wall thickening. Moderate stool. Appendix is normal. Peritoneum: No abnormal intraperitoneal fluid. No free air. Ventral Wall: No significant ventral hernia. Abdominal Nodes: No retroperitoneal or mesenteric adenopathy by size criteria. Vessels: Aorta and inferior vena cava are normal in size. PELVIS: Pelvic Organs: Unremarkable. Bladder: No bladder wall thickening, accounting for underdistention. Pelvic Nodes: No enlarged lymph nodes. Miscellaneous: No inguinal hernias are seen. Bones: No aggressive osseous abnormality. IMPRESSION: Decreased enhancement in the superior medial right kidney suggestive of pyelonephritis. Focus inflammatory change adjacent to the inferior pole of the right kidney and colon without associated colonic wall thickening. No decreased enhancement is readily identified in this portion of the kidney. Findings are overall nonspecific. This may be related to epiploic appendagitis. MDM Narrative Medical decision making narrative: Right lower quadrant abdominal discomfort on examination, hCG negative, urinalysis suspicious for UTI, IV ceftriaxone given. However patient does seem to have significant tenderness to right lower quadrant. We will additionally imaged with CT abdomen and pelvis, patient gave verbal consent. CT abdomen and pelvis scan ordered. 1800, CT abdomen and pelvis results show equivocal changes, concern for epiploic appendagitis versus bowel loop versus ruptured appendicitis. Oncoming ED shift physician Dr Keen to contact surgery, and will assumed care for disposition at this time. 5: Patient re-evaluated informed her of her CT scan results which was consistent more with a pyelonephritis as well as epiploic appendagitis, patient will be sent home with antibiotics, and NSAIDs to treat her symptoms. 2130: Touch bases with general surgeon Dr. Ceron, agrees with radiologist read showing pyelonephritis and epiploic appendagitis, no need for surgery, patient will be sent home with antibiotics and pain management instructed to follow up with PCP in outpatient setting patient was told about these findings, she was given strict return precautions she verbalized understanding of this and agrees to being discharged home with outpatient follow up Discharge Plan Departure Patient Disposition: Home Clinical Impression: Pyelonephritis, Epiploic appendagitis Instructions: DI for Kidney Infection Activity Restrictions/Additional Instructions: Please follow up with your primary care doctor Please read the discharge instructions sheet carefully and bring all papers to all doctor follow-up visits, as it may contain information that your doctor may want to see. Disease processes change and evolve, if your symptoms worsen or if you develop any new symptoms that are concerning to you please return for evaluation. Your evaluation today does not show any evidence of any life- threatening/serious illnesses requiring admission to the hospital or surgery. Please follow-up with your doctor for re-evaluation in approximately 1 day. Seek immediate medical attention for any worrisome symptoms. *If you do not have a primary care provider please contact the [facility] Resource line at [phone]. They will ask some questions about your medical history and help get you set up with a doctor in the community. Prescriptions: New sulfamethoxazole-trimethoprim [Bactrim DS] 800-160 mg tablet 2 tab PO BID 14 Days Qty: 56 0RF ondansetron 4 mg tablet,disintegrating 4 mg PO Q8H PRN (Reason: nausea and vomiting) 5 Days Qty: 15 0RF oxycodone-acetaminophen [Percocet] 5-325 mg tablet 1 tab PO Q8H PRN (Reason: pain) 3 Days Qty: 9 0RF No Action cephalexin 500 mg capsule 500 mg PO QID 7 Days Qty: 28 0RF Referrals: Miscellaneous,Doctor, MD [Primary Care Provider] - Stand Alone Forms: Patient Portal/API/Survey
--- NOTE | 2024-07-24 15:23 | DI.CT.S_ITS ---
PROCEDURE: CT ABDOMEN PELVIS WO CON INDICATIONS: RLQ pain, tender TECHNIQUE: Axial sections were acquired from the lung bases to the pubic symphysis. Coronal and sagittal reformats were performed. For radiation dose reduction, the following was used: automated exposure control, adjustment of mA and/or kV according to patient size. COMPARISON: None. FINDINGS: Image quality: Diagnostic. Lower Chest: No significant findings. URINARY: Right Kidney: No stones or hydronephrosis. Right Ureter: No hydroureter. Left Kidney: No stones or hydronephrosis. Left Ureter: No hydroureter. Bladder: Normal wall thickness. No stones. ABDOMEN: Liver: No contour-deforming solid mass. Gallbladder: No radiopaque gallstones or wall thickening. Biliary ducts: No biliary dilation. Pancreas: No ductal dilation. Spleen: Size is within normal limits. Adrenal Glands: No adrenal nodules. Stomach and Bowel: Normal colonic caliber, without significant wall thickening. There is inflammatory change in the fat subjacent to the ascending colon. An appendix is not identified. Inflammatory changes at a distance from the expected location of the appendix. The inflammatory changes present in close proximity to the upper pole of the right kidney and posterior to the ascending colon and subjacent to the inferior tip liver. Peritoneum: No abnormal intraperitoneal fluid. No free air. Ventral Wall: No hernia. Abdominal Nodes: No enlarged retroperitoneal or mesenteric lymph nodes. Vessels: Aorta and inferior vena cava are normal in size. PELVIS: Pelvic Organs: Unremarkable. Pelvic Nodes: Unremarkable. Miscellaneous: No inguinal hernias are seen. Bones: Unremarkable. IMPRESSION: 1. No renal stone, ureteral stone, or hydronephrosis. 2. The appendix is not visualized. 3. There is inflammatory change in the fat in the right abdomen subjacent to the kidney, colon, and tip of the liver. Consider epiploic appendagitis versus right colonic diverticulitis versus findings related to ruptured appendicitis. There is no associated free air or abscess cavity. Dictated by: Dameon Mehta M.D. on 07/24/2024 at 16:30 Approved by: Dameon Mehta M.D. on 07/24/2024 at 16:43
[2024-07-24] MEDS: cefTRIAXone 1,000 MG in SODIUM CHLORIDE 0.9% 100 ML 200 MG IV (15:49)
[2024-07-24 16:25] LABS: Urine N gonorrhoeae NOT DETECTED
[2024-07-24 16:28] LABS: Urine Chlamydia NOT DETECTED
--- NOTE | 2024-07-24 18:42 | DI.CT.S_ITS ---
PROCEDURE: CT ABDOMEN PELVIS W CON INDICATIONS: indeterminate CT of RLQ TECHNIQUE: After the administration of intravenous contrast, axial sections acquired from the lung bases to the pubic symphysis. Coronal and sagittal reformats were performed. For radiation dose reduction, the following was used: automated exposure control, adjustment of mA and/or kV according to patient size. COMPARISON: [facility], CT, CT ABDOMEN PELVIS WO CON, 07/24/2024, 15:32. FINDINGS: Image quality: Diagnostic. Lower Chest: No significant findings. ABDOMEN: Liver: No solid mass. Gallbladder: No radiopaque gallstones or wall thickening. Biliary ducts: No biliary dilation. Pancreas: No ductal dilation. Spleen: Size is within normal limits. Adrenal Glands: No adrenal nodules. Kidneys and Ureters: There is decreased contrast enhancement in the superior medial the right kidney. Previous area inflammation within the fat of the right abdomen adjacent to the inferior renal pole as well as right colon and tip of the liver is present, unchanged. Stomach and Bowel: Normal colonic caliber, without significant wall thickening. Moderate stool. Appendix is normal. Peritoneum: No abnormal intraperitoneal fluid. No free air. Ventral Wall: No significant ventral hernia. Abdominal Nodes: No retroperitoneal or mesenteric adenopathy by size criteria. Vessels: Aorta and inferior vena cava are normal in size. PELVIS: Pelvic Organs: Unremarkable. Bladder: No bladder wall thickening, accounting for underdistention. Pelvic Nodes: No enlarged lymph nodes. Miscellaneous: No inguinal hernias are seen. Bones: No aggressive osseous abnormality. IMPRESSION: Decreased enhancement in the superior medial right kidney suggestive of pyelonephritis. Focus inflammatory change adjacent to the inferior pole of the right kidney and colon without associated colonic wall thickening. No decreased enhancement is readily identified in this portion of the kidney. Findings are overall nonspecific. This may be related to epiploic appendagitis. Dictated by: Sharri Burden M.D. on 07/24/2024 at 21:03 Approved by: Sharri Burdne M.D. on 07/24/2024 at 21:07
[2024-07-24] MEDS: MORPHINE 4 MG/ML INJ IV (19:19)
[2024-07-24] MEDS: ACETAMINOPHEN IV 1,000 MG/100 ML VIAL 400 MG IV (19:19)
[2024-07-24] MEDS: methocarbamoL 500 MG TABLET PO (19:20)
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
[2024-07-24] MEDS: CELECOXIB 200 MG CAPSULE PO (21:24)
== END 2024-07-24 22:25 | disposition home or self-care (01) ==
PROVIDERS: Emergency Medicine; Emergency Provider Student in an Organized Health Care Education/Training Program
DX: N12 Tubulo-interstitial nephritis, not specified as acute or chronic (principal); K63.89 Other specified diseases of intestine; K35.80 Unspecified acute appendicitis
CPT/HCPCS: 36415; 74176; 74177; 80053; 81003; 81015; 81025; 83690; 85025; 87077; 87086; 87186; 87491; 87591; 96365; 96375; 99284; J0131; J0696; J2270; Q9967

== ENCOUNTER → 2024-10-04 08:22 | Outpatient (CLI) | payer OTHER, SELFPAY ==
[2024-10-04 10:40] LABS: Urine N gonorrhoeae NOT DETECTED
[2024-10-04 10:41] LABS: Urine Chlamydia NOT DETECTED
== END ==
PROVIDERS: Visit Provider Registered Nurse
DX: N89.8 Other specified noninflammatory disorders of vagina (principal)
CPT/HCPCS: 87210; 87491; 87591